=== PATIENT | female | born 1950 | race Caucasian/White ===

== ENCOUNTER 2019-09-29 08:55 | Day surgery (SDC) | payer MEDICARE, OTHER, SELFPAY ==
[2019-09-29 09:22] VITALS: BMI 27.4
[2019-09-29 09:26] VITALS: BP 176/86; PULSE 114; RESP 14; TEMP 36.8; O2SAT 96
[2019-09-29] MEDS: SODIUM CHLORIDE 0.9% 1,000 ML 200 ML IV (09:46)
--- NOTE | 2019-09-29 10:14 | PM.HP.1 ---
History of Present Illness History of Present Illness Date Patient Seen: 09/29/19 Time Patient Seen: 10:14 Chief complaint: [id number] SCREENING COLONOSCOPY Narrative: Patient presents for colorectal screening. Last colonoscopy was 10 years ago and normal.. No personal history of colon cancer. Her mother had colon cancer. On further history denies any recent gastrointestinal symptoms. No nausea, vomiting, abdominal pain, loss of appetite, unexplained weight loss, change in bowel habits, diarrhea, constipation, melena, hematochezia, or bright red blood per rectum. Patient History Medical History (Updated 09/29/19 @ 10:15 by Ronni Persaud MD) Allergic rhinitis Asthma, mild intermittent, well-controlled (02/22/16) Closed trimalleolar fracture of right ankle with delayed healing (08/09/16) Essential hypertension Family history of malignant neoplasm of colon in mother (09/02/15) Mixed hyperlipidemia (01/06/03) Surgical History (Updated 12/25/17 @ 06:24 by Conversion Provider) Status post hernia repair Family & Social History Family History (Updated 11/01/15 @ 00:00 by Conversion Provider) Father Age: 92 Dementia Hypertension Mother Colon cancer Social History: household members spouse Tobacco & Substance use: Smoking Status Never smoker alcohol intake frequency holiday/special occasion Substance Use Type does not use Meds Home Medications and Allergies Home Medications Medication Instructions Recorded Confirmed Type CA PANTOTHENATE/FOLIC ACID/VIT 1 tab PO QDAY #0 03/09/11 09/29/19 History (MULTIVITAMIN) [AZO YEAST] #0 03/09/11 History [GLUCOSAMINE/CHONDRO] #0 03/09/11 History [IBUPROFEN] #0 03/09/11 History Disabled Parking Permit dev #1 04/20/16 Rx diclofenac sodium 1 óscar TP SEE INSTRUCTIONS #100 gm 07/05/16 Rx fluconazole [Diflucan] 150 mg PO QDAY #2 tab 08/09/16 09/29/19 Rx Qvar 0.08 mg IH BID #1 mcg 11/01/16 09/29/19 Rx [CO-Q-10] 300 mg Q DAY #0 11/01/16 09/29/19 History albuterol sulfate [Proventil HFA] 1 puff INH Q4HP PRN #1 inh 11/01/16 09/29/19 Rx cholecalciferol (vitamin D3) 400 PO Q DAY #0 11/01/16 History [Vitamin D3] cyclobenzaprine 10 mg PO BID #60 mg 11/01/16 Rx estradiol [Estrace] 1 gm VAGINAL 2XWK #1 tube 11/01/16 09/29/19 Rx sulfamethoxazole-trimethoprim 1 tab PO BID #30 tab 11/01/16 Rx lisinopril 10 mg PO SEE INSTRUCTIONS 09/29/19 09/29/19 History loratadine 09/29/19 History Allergies Allergy/AdvReac Type Severity Reaction Status Date / Time hydrochlorothiazide Allergy Mild LIGHTHEADED Unverified 12/05/17 13:01 SEASONAL ALLERGIES Allergy Mild EYE Uncoded 12/05/17 13:01 IRRITATION, RUNNY NOSE SKIN ADRIANA Allergy Mild ITCHY, Uncoded 12/05/17 13:01 REDNESS AT EDGES Review of Systems Review of Systems Narrative: A 10 point review of systems is negative except as noted in the HPI Exam Vital Signs (past 8 hours): - 09/29/19 09:26 Temperature 98.3 F Pulse Rate 114 H Respiratory Rate 14 Blood Pressure 176/86 H Pulse Oximetry 96 Oxygen Delivery Method Room Air Narrative Exam Narrative: General-no acute distress, well nourished HEENT-moist mucous membranes, no scleral icterus Neck-supple, no lymphadenopathy Chest- non labored respirations, clear to auscultation bilaterally Cardiac-regular rate no peripheral edema Abdomen-soft, nontender, non distended Extremities-warm, well perfused Neurological-alert and oriented, no focal deficits Assessment & Plan Assessment and plan (1) Screening for colon cancer: Current visit: Yes Status: Acute Assessment & Plan narrative: The patient requires colorectal screening and colonoscopy is recommended. Technical details were discussed. Risks, benefits, alternatives explained. Risks including but not limited to myocardial infarction, aspiration, bleeding, pain, missed lesion, incomplete examination, need for further radiographic studies, colonic perforation, and need for major abdominal surgery were discussed. All questions were answered to their satisfaction, and they are in agreement with this plan.
--- NOTE | 2019-09-29 10:42 | PM.OP.ENDO ---
Operative Date/Time/Diagnoses Date of procedure: 09/29/19 Time of procedure: 10:42 Pre-op diagnosis: screening colonoscopy Family history of colon cancer Post-op diagnosis: same Procedure & Clinicians Study performed: Colonoscopy Same procedure as scheduled: Yes Indications: 69 year-old female last colonoscopy 10 years ago normal, 1st degree relative with colon cancer presents for routine screening Surgeon: Ronni Persaud Procedure Notes SCOAP/Timeout: Performed Procedure in detail: Patient placed in left lateral decubitus position. Time out was performed. Procedural sedation was administered with Versed and Fentanyl. A rectal exam demonstrated no external hemorrhoids no internal masses. Colonoscopy scope was placed into the rectum and advanced through the colon to the cecum. The ileocecal valve was identified. The scope was then slowly withdrawn examining colon thoroughly in all directions. The colonoscopy was notable for the following 1. Sigmoid diverticulosis 2. No masses or polyps 3. Quality of prep excellent Scope withdrawal time: 7 Sedation minutes: 20 Findings: diverticulosis Specimen(s): none sent Complications: none Impression: Diverticulosis Post-procedure Recommendations: Colonscopy in 5 years Disposition: same day surgery
[2019-09-29 10:43] VITALS: BP 143/77; PULSE 93; RESP 10; TEMP 36.4; O2SAT 99
[2019-09-29] MEDS: fentaNYL 250 MCG/5 ML INJ IV (10:44)
[2019-09-29] MEDS: MIDAZOLAM 5 MG/5 ML VIAL IV (10:45)
[2019-09-29 10:49] VITALS: BP 138/74; PULSE 94; RESP 14; TEMP 36.1; O2SAT 99
[2019-09-29 10:55] VITALS: BP 133/58; PULSE 87; RESP 12; TEMP 36.4; O2SAT 100
[2019-09-29 11:05] VITALS: BP 122/72; PULSE 84; RESP 12; TEMP 36.1; O2SAT 99
== END 2019-09-29 11:22 | disposition home or self-care (01) ==
PROVIDERS: Family Provider Nurse Practitioner; PCP Nurse Practitioner; Referring Provider Nurse Practitioner; Visit Provider Surgery
PROC: 0DJD8ZZ Inspection of Lower Intestinal Tract, Via Natural or Artificial Opening Endoscopic (ICD-10-PCS; CPT 45378; principal; 2019-09-29 10:00)
DX: Z12.11 Encounter for screening for malignant neoplasm of colon (principal); Z80.0 Family history of malignant neoplasm of digestive organs; K57.30 Diverticulosis of large intestine without perforation or abscess without bleeding
CPT/HCPCS: G0105; 99152; J2250; J3010

== ENCOUNTER → 2021-01-15 08:00 | Outpatient (CLI) | payer MEDICARE, SELFPAY ==
--- NOTE | 2021-01-15 08:03 | DI.MG.S_ITS ---
BILATERAL DIGITAL SCREENING MAMMOGRAM 3D/2D WITH CAD: 01/15/2021 CLINICAL: Routine screening. Family history of breast cancer. Comparison is made to exams dated: 09/15/2015 mammogram, 04/17/2011 mammogram, and 04/05/2004 mammogram - [facility]. The tissue of both breasts is heterogeneously dense. This may lower the sensitivity of mammography. Current study was also evaluated with a Computer Aided Detection (CAD) system. There is a possible 0.8 cm oval asymmetry with fine calcifications in the right breast middle depth central to the nipple seen on the craniocaudal view only. No other significant masses, calcifications, or other findings are seen in either breast. IMPRESSION: INCOMPLETE: NEEDS ADDITIONAL IMAGING EVALUATION The possible 0.8 cm oval asymmetry in the right breast is indeterminate. Spot magnification views as well as additional views with possible ultrasound are recommended. This exam was interpreted at Station ID: [id number]. NOTE: For mammograms, a report in lay terms will be sent to the patient. Approximately 15% of breast malignancies will not be visualized mammographically. In the management of a palpable breast mass, a negative mammogram must not discourage biopsy of a clinically suspicious lesion. Electronically Signed By: Wade rich/shannan:01/17/2021 07:26:33 letter sent: Additional Imaging Needed ACR BI-RADS Category 0: Incomplete 3340F
== END ==
PROVIDERS: Family Provider Nurse Practitioner; PCP Family Medicine; Referring Provider Nurse Practitioner Family; Visit Provider Nurse Practitioner Family
DX: Z12.31 Encounter for screening mammogram for malignant neoplasm of breast (principal); Z80.3 Family history of malignant neoplasm of breast
CPT/HCPCS: 77063; 77067

== ENCOUNTER → 2021-01-31 08:11 | Outpatient (CLI) | payer MEDICARE, SELFPAY ==
--- NOTE | 2021-01-31 | DI.MG.S_ITS ---
UNILATERAL RIGHT DIGITAL DIAGNOSTIC MAMMOGRAM 3D/2D WITH ADDITIONAL VIEWS: 01/31/2021 CLINICAL: Additional evaluation requested from prior study. Comparison is made to exams dated: 01/15/2021 mammogram, 09/15/2015 mammogram, and 04/17/2011 mammogram - [facility]. The tissue of right breast is heterogeneously dense. This may lower the sensitivity of mammography. The possible 0.8 cm asymmetry in the right breast middle depth central to the nipple seen on the craniocaudal view only is not reproduced and presumably represented superimposed breast tissue. This is not confirmed with additional views. There are diffuse fine calcifications in the right breast, none suspiciously grouped. No other significant masses or calcifications are seen in the breast. IMPRESSION: INCOMPLETE: NEEDS ADDITIONAL IMAGING EVALUATION Resolution of screening mammography abnormality with additional views. Ultrasound evaluation to confirm resolution is recommended and was performed immediately following this exam. This exam was interpreted at Station ID: [id number]. NOTE: For mammograms, a report in lay terms will be sent to the patient. Approximately 15% of breast malignancies will not be visualized mammographically. In the management of a palpable breast mass, a negative mammogram must not discourage biopsy of a clinically suspicious lesion. Electronically Signed By: Sidra ohara/:01/31/2021 09:25:47 ACR BI-RADS Category 0: Incomplete [id number]
--- NOTE | 2021-01-31 | DI.US.S_ITS ---
LIMITED ULTRASOUND OF RIGHT BREAST: 01/31/2021 CLINICAL: Patient returns today to evaluate a focal asymmetry in the right breast. Comparison is made to exams dated: 01/31/2021 mammogram, 01/15/2021 mammogram, 09/15/2015 ultrasound, 09/15/2015 mammogram, and 04/17/2011 mammogram - [facility]. Real-time ultrasound of the right breast 12 o'clock region was performed. Ramirez scale images of the real-time examination were reviewed. No significant abnormalities were seen sonographically in the right breast. Specifically, no finding to correspond to the patient's resolved screening mammographic abnormality. IMPRESSION: NEGATIVE There is no sonographic correlate to the patient's resolved screening mammography abnormality and no evidence of malignancy. Return to annual mammogram screening schedule is recommended. Findings and recommendations were conveyed to the patient at time of exam. This exam was interpreted at Station ID: [id number]. Electronically Signed By: Sidra ohara/:01/31/2021 10:17:31 letter sent: Normal Exam Ultrasound BI-RADS: 1 Negative
== END ==
PROVIDERS: Family Provider Nurse Practitioner; PCP Family Medicine; Referring Provider Nurse Practitioner Family; Visit Provider Nurse Practitioner Family
DX: R92.8 Other abnormal and inconclusive findings on diagnostic imaging of breast (principal)
CPT/HCPCS: 76642; 77065; G0279

== ENCOUNTER → 2022-05-30 10:27 | Outpatient (CLI) | payer MEDICARE, SELFPAY ==
--- NOTE | 2022-05-30 | DI.MG.S_ITS ---
BILATERAL DIGITAL SCREENING MAMMOGRAM 3D/2D WITH CAD: 05/30/2022 CLINICAL: Routine screening. Comparison is made to exams dated: 01/31/2021 mammogram, 01/15/2021 mammogram, and 09/15/2015 mammogram - [facility]. Both breasts are heterogeneously dense, which may obscure small masses (category c / 51-75% glandular tissue). Current study was also evaluated with a Computer Aided Detection (CAD) system. No significant masses, calcifications, or other findings are seen in either breast. There has been no significant interval change. IMPRESSION: NEGATIVE There is no mammographic evidence of malignancy. A 1 year screening mammogram is recommended. Based on the Tyrer Cuzick model (a risk assessment model) the patient's lifetime risk is 7.3% and her 10 year risk is 5.1%. According to the ACR, ACS, and NCCN guidelines, an annual breast MRI exam along with mammogram is recommended if the patient's lifetime risk is 20% or greater. This exam was interpreted at Station ID: [id number]. NOTE: For mammograms, a report in lay terms will be sent to the patient. Approximately 15% of breast malignancies will not be visualized mammographically. In the management of a palpable breast mass, a negative mammogram must not discourage biopsy of a clinically suspicious lesion. Electronically Signed By: Rudolph villarreal/shannan:05/30/2022 11:44:42 letter sent: Normal Exam ACR BI-RADS Category 1: Negative 3341F
== END ==
PROVIDERS: Family Provider Nurse Practitioner; PCP Family Medicine; Referring Provider Family Medicine; Visit Provider Family Medicine
DX: Z12.31 Encounter for screening mammogram for malignant neoplasm of breast (principal)
CPT/HCPCS: 77063; 77067

== ENCOUNTER → 2022-08-23 09:32 | Outpatient (CLI) | payer MEDICARE, SELFPAY | PROVIDERS: Family Provider Nurse Practitioner; PCP Family Medicine; Referring Provider Family Medicine; Visit Provider Family Medicine | DX: Z13.820 Encounter for screening for osteoporosis (principal); Z78.0 Asymptomatic menopausal state | CPT/HCPCS: 77080 ==

== ENCOUNTER → 2023-07-25 11:21 | Outpatient (CLI) | payer MEDICARE, SELFPAY ==
--- NOTE | 2023-07-25 | DI.MG.S_ITS ---
BILATERAL DIGITAL SCREENING MAMMOGRAM 3D/2D WITH CAD: 07/25/2023 CLINICAL: Routine screening. Family history of breast cancer. Comparison is made to exams dated: 05/30/2022 mammogram, 01/15/2021 mammogram, and 09/15/2015 mammogram - [facility]. Both breasts are heterogeneously dense, which may obscure small masses (category c / 51-75% glandular tissue). Current study was also evaluated with a Computer Aided Detection (CAD) system. No significant masses, calcifications, or other findings are seen in either breast. There has been no significant interval change. IMPRESSION: NEGATIVE There is no mammographic evidence of malignancy. A 1 year screening mammogram is recommended. Based on the Tyrer Cuzick model (a risk assessment model) the patient's lifetime risk is 6.9% and her 10 year risk is 5.2%. According to the ACR, ACS, and NCCN guidelines, an annual breast MRI exam along with mammogram is recommended if the patient's lifetime risk is 20% or greater. This exam was interpreted at Station ID: [id number]. NOTE: For mammograms, a report in lay terms will be sent to the patient. Approximately 15% of breast malignancies will not be visualized mammographically. In the management of a palpable breast mass, a negative mammogram must not discourage biopsy of a clinically suspicious lesion. Electronically Signed By: Rudolph villarreal/shannan:07/25/2023 13:34:39 letter sent: Normal Exam ACR BI-RADS Category 1: Negative [id number]
--- NOTE | 2023-07-25 | DI.US.S_ITS ---
PROCEDURE: US ABDOMEN COMPLETE INDICATIONS: CHRONIC ABD PAIN TECHNIQUE: Real-time scanning was performed of the abdominal and retroperitoneal organs, with image documentation. COMPARISON: None. FINDINGS: Liver: Normal size liver. Mildly coarse and slightly hyperechoic hepatic echotexture. No discrete mass. Gallbladder: The gallbladder is normal without stones, sludge, wall thickening, or pericholecystic fluid. Biliary ducts: Intrahepatic bile ducts are non-dilated. Extrahepatic bile duct caliber measures 6 mm. Normal is 6-7 mm or less in diameter, or 10 mm or less post-cholecystectomy. Pancreas: Decreased visualization of the proximal and distal pancreas due to overlying bowel gas. The visualized portion of the neck and body appear normal. Spleen: Spleen is normal in size and homogeneous in echotexture. Kidneys: The right kidney is dysmorphic and found in the right lower quadrant. The cortical thickness appears normal there is no significant hydronephrosis seen. The left kidney is normal in position and size measuring 13.1 cm in length. No hydronephrosis. Aorta: Visualized aorta is normal in caliber at less than 3 cm. Iliacs: Proximal common iliac arteries are normal in caliber at less than 2.5 cm. IVC: Intrahepatic inferior vena cava is patent. Miscellaneous: Right upper quadrant area of pain was scanned at rest and during Valsalva maneuver. No abdominal wall hernia was seen. No free fluid. IMPRESSION: 1. Mildly coarse hepatic echotexture may indicate intrinsic liver disease. Correlation with lab values is recommended. 2. Normal gallbladder. 3. No abdominal wall hernia in the area of pain. For further evaluation, contrast-enhanced CT or MRI could be considered. Dictated by: Sidra Montes M.D. on 07/25/2023 at 17:39 Approved by: Sidra Montes M.D. on 07/25/2023 at 17:44
== END ==
PROVIDERS: Family Provider Nurse Practitioner; PCP Family Medicine; Referring Provider Family Medicine; Visit Provider Family Medicine
DX: Z12.31 Encounter for screening mammogram for malignant neoplasm of breast (principal); R10.9 Unspecified abdominal pain; G89.29 Other chronic pain; R07.81 Pleurodynia; Z87.19 Personal history of other diseases of the digestive system; Z80.3 Family history of malignant neoplasm of breast
CPT/HCPCS: 76700; 77063; 77067

== ENCOUNTER → 2023-09-19 10:10 | Outpatient (CLI) | payer MEDICARE, SELFPAY ==
--- NOTE | 2023-09-19 10:12 | DI.CT.S_ITS ---
PROCEDURE: CT ABDOMEN PELVIS W CON INDICATIONS: ABNORMAL ULTRASOUND OF ABDOMEN TECHNIQUE: After the administration of intravenous contrast, axial sections acquired from the lung bases to the pubic symphysis. Coronal and sagittal reformats were performed. For radiation dose reduction, the following was used: automated exposure control, adjustment of mA and/or kV according to patient size. COMPARISON: [facility], US, US ABDOMEN COMPLETE, 07/25/2023, 12:51. FINDINGS: Image quality: Diagnostic. Lower Chest: 3-4 mm solid nodule, right lower lobe (series 5, image 14). Oral contrast within the distal esophagus, probably reflux. Moderate LAD calcifications. ABDOMEN: Liver: No solid mass. Gallbladder: No radiopaque gallstones or wall thickening. Biliary ducts: No biliary dilation. Pancreas: No ductal dilation. Interposed fat within the tail of the pancreas. Spleen: Size is within normal limits. Adrenal Glands: No adrenal nodules. Kidneys and Ureters: Right Kidney is not present. No hydronephrosis. No solid mass. No complex renal cystic lesion which requires follow up. Stomach and Bowel: Normal colonic caliber, without significant wall thickening. Peritoneum: No abnormal intraperitoneal fluid. No free air. Ventral Wall: Tiny umbilical hernia containing fat. Abdominal Nodes: No retroperitoneal or mesenteric adenopathy by size criteria. Vessels: Aorta and inferior vena cava are normal in size. PELVIS: Pelvic Organs: Unremarkable. Bladder: Unremarkable. Pelvic Nodes: No enlarged lymph nodes. Miscellaneous: No inguinal hernias are seen. Bones: No aggressive osseous abnormality. Degenerative disc disease, most prominent at L4-5. IMPRESSION: Tiny umbilical hernia containing fat. 3-4 mm solid nodule in the right lower lobe. Consider 12 month follow-up if at high risk for developing lung cancer, per Fleischner Society guidelines. Suspected gastroesophageal reflux. Dictated by: León Cullen M.D. on 09/19/2023 at 12:45 Approved by: León Cullen M.D. on 09/19/2023 at 12:52
[2023-09-19 10:53] LABS: Estimated Glomerular Filt Rate > 60 mL/min (>60)
== END ==
LOC: CT 10:11
PROVIDERS: Radiology Diagnostic Radiology; Family Provider Nurse Practitioner; PCP Family Medicine; Referring Provider Family Medicine; Visit Provider Family Medicine
DX: R93.5 Abnormal findings on diagnostic imaging of other abdominal regions, including retroperitoneum (principal); R91.1 Solitary pulmonary nodule
CPT/HCPCS: 36415; 74177; 82565; Q9967

== ENCOUNTER → 2023-11-05 07:47 | Outpatient (CLI) | payer MEDICARE, SELFPAY ==
[2023-11-05 08:17] LABS: Add Manual Diff / Slide Review NO; Basophils Absolute Auto 0 /uL (0-100); Basophils Percent Auto 0.6 % (0-2); Eosinophils Absolute Auto 100 /uL (0-450); Eosinophils Percent Auto 2.4 % (2-4); Hematocrit 41.9 % (36-46); Hemoglobin 14.2 g/dL (12.0-16.0); Lymphocytes Absolute Auto 1600 /uL (1100-4500); Lymphocytes Percent Auto 30.8 % (25-40); Mean Corpuscular HGB Conc 33.9 % (30-36); Mean Corpuscular Hemoglobin 31.4 PG (26-34); Mean Corpuscular Volume 92.7 fL (80-100); Monocytes Absolute Auto 400 /uL (0-900); Monocytes Percent Auto 8.1 % (3-14); Neutrophils Absolute Auto 3000 /uL (1500-7000); Neutrophils Percent Auto 58.1 % (50-75); Platelet Count 266 X10^3/uL (150-400); Red Blood Cell Count 4.52 X10^6/uL (4.0-5.2); Red Cell Distribution Width 12.5 % (11.6-14.8); White Blood Cell Count 5.2 X10^3/uL (4.5-11.0)
[2023-11-05 08:48] LABS: Alanine Aminotransferase 26 IU/L (<35); Albumin 4.1 g/dL (3.5-5.0); Albumin Globulin Ratio 1.4 (1.0-2.8); Alkaline Phosphatase 81 U/L (38-126); Aspartate Aminotransferase 31 IU/L (14-36); BUN Creatinine Ratio 15.9 (6-22); Bilirubin Total 0.9 mg/dL (0.2-1.3); Blood Urea Nitrogen 13 mg/dL (7-17); Calcium 9.8 mg/dL (8.4-10.2); Carbon Dioxide 28 mmol/L (22-32); Chloride 107 mmol/L (98-107); Cholesterol 146 mg/dL (140-199); Estimated Glomerular Filt Rate > 60 mL/min (>60); Glucose 93 mg/dL (80-110); HDL Cholesterol 72 mg/dL (40-60); HEMOLYSIS < 15 (0-50); LDL Cholesterol Calculated 60 mg/dL (<100); Potassium 3.9 mmol/L (3.4-5.1); Sodium 141 mmol/L (137-145); Total Protein 7.1 g/dL (6.3-8.2); Triglycerides 70 mg/dL (35-150)
[2023-11-05 09:18] LABS: TSH w/ Reflex to FT4 1.02 uIU/mL (0.47-4.68)
[2023-11-07 08:10] LABS: Interpretation Negative (Negative)
== END ==
PROVIDERS: Family Provider Nurse Practitioner; PCP Nurse Practitioner Family; Referring Provider Nurse Practitioner Family; Visit Provider Nurse Practitioner Family
DX: I10 Essential (primary) hypertension (principal); K27.9 Peptic ulcer, site unspecified, unspecified as acute or chronic, without hemorrhage or perforation; E78.5 Hyperlipidemia, unspecified
CPT/HCPCS: 36415; 80053; 80061; 83013; 84443; 85025

== ENCOUNTER → 2024-01-25 08:40 | Outpatient (CLI) | payer MEDICARE, SELFPAY ==
[2024-01-25 09:46] LABS: Alanine Aminotransferase 56 IU/L (<35); Albumin Globulin Ratio 1.5 (1.0-2.8); Alkaline Phosphatase 100 U/L (38-126); Aspartate Aminotransferase 49 IU/L (14-36); BUN Creatinine Ratio 25.9 (6-22); Bilirubin Total 0.8 mg/dL (0.2-1.3); Blood Urea Nitrogen 22 mg/dL (7-17); Calcium 9.9 mg/dL (8.4-10.2); Carbon Dioxide 30 mmol/L (22-32); Chloride 107 mmol/L (98-107); Estimated Glomerular Filt Rate > 60 mL/min (>60); Globulin 2.6 g/dL (1.7-4.1); Glucose 109 mg/dL (80-110); HEMOLYSIS < 15 (0-50); Potassium 4.4 mmol/L (3.4-5.1); Sodium 139 mmol/L (137-145); Total Protein 6.6 g/dL (6.3-8.2)
[2024-01-25 09:57] LABS: Creatinine Urine Random 34.36 mg/dL
[2024-01-25 10:01] LABS: Microalbumin Urine Random < 0.6 mg/dL (0-1.6)
== END ==
PROVIDERS: Family Provider Nurse Practitioner; PCP Nurse Practitioner Family; Referring Provider Nurse Practitioner Family; Visit Provider Nurse Practitioner Family
DX: I10 Essential (primary) hypertension (principal); E78.5 Hyperlipidemia, unspecified
CPT/HCPCS: 36415; 80053; 82043; 82570

== ENCOUNTER 2024-04-01 15:03 | Emergency (ER) | payer MEDICARE, SELFPAY ==
[2024-04-01 15:08] VITALS: BP 247/112; PULSE 78; RESP 18; TEMP 36.7; O2SAT 99; BMI 28.3
--- NOTE | 2024-04-01 15:19 | EKG_ITS ---
[address] [id number] [place] [address] Test Date: 2024-04-01 Pat Name: Mikayla Dillard Department: [facility] Room: Gender: Female Service Clerk: MICHAEL : 1950 Requested By: Order Number: [id number] Reading MD: Alfa Bobby MD Measurements Intervals Crum Rate: 72 P: 50 WA: 140 QRS: 22 QRSD: 130 T: 3 QT: 432 QTc: 473 Interpretive Statements Normal sinus rhythm Right bundle branch block NO PRIOR TRACING Electronically Signed On 04-01-2024 16:51:08 PDT by Alfa Bobby MD
--- NOTE | 2024-04-01 15:19 | DI.RAD.S_ITS ---
PROCEDURE: XR CHEST 1V INDICATIONS: htn TECHNIQUE: One view of the chest was acquired. COMPARISON: None. FINDINGS: Surgical changes and devices: None. Lungs and pleura: Lungs are clear. No pleural effusions or pneumothorax. Mediastinum: Mediastinal contours appear normal. Heart size is normal. Bones and chest wall: No suspicious bony lesions. Overlying soft tissues appear unremarkable. IMPRESSION: No acute cardiopulmonary abnormality is seen. Dictated by: Ingris Mcdaniels M.D. on 04/01/2024 at 15:57 Approved by: Ingris Mcdaniels M.D. on 04/01/2024 at 15:58
[2024-04-01 15:33] LABS: Add Manual Diff / Slide Review NO; Basophils Absolute Auto 100 /uL (0-100); Basophils Percent Auto 1.2 % (0-2); Eosinophils Absolute Auto 100 /uL (0-450); Eosinophils Percent Auto 2.2 % (2-4); Hemoglobin 14.5 g/dL (12.0-16.0); Lymphocytes Absolute Auto 1600 /uL (1100-4500); Lymphocytes Percent Auto 27.2 % (25-40); Mean Corpuscular HGB Conc 33.7 % (30-36); Mean Corpuscular Hemoglobin 31.9 PG (26-34); Mean Corpuscular Volume 94.6 fL (80-100); Monocytes Absolute Auto 400 /uL (0-900); Monocytes Percent Auto 7.2 % (3-14); Neutrophils Absolute Auto 3700 /uL (1500-7000); Neutrophils Percent Auto 62.2 % (50-75); Platelet Count 254 X10^3/uL (150-400); Red Blood Cell Count 4.55 X10^6/uL (4.0-5.2); Red Cell Distribution Width 12.9 % (11.6-14.8)
--- NOTE | 2024-04-01 15:33 | PC.NURSE ---
Pt sent by optho office because pt was experiencing HTN prior to cateract procedure. Pt states that she feels fine and did not even realize her bp was so high. Pt has hx of HTN for which she takes losartan. A&Ox4. Denies cp, sob.
[2024-04-01 15:44] LABS: Alanine Aminotransferase 32 IU/L (<35); Albumin 4.3 g/dL (3.5-5.0); Albumin Globulin Ratio 1.3 (1.0-2.8); Alkaline Phosphatase 107 U/L (38-126); Aspartate Aminotransferase 37 IU/L (14-36); BUN Creatinine Ratio 23.4 (6-22); Bilirubin Total 0.7 mg/dL (0.2-1.3); Blood Urea Nitrogen 18 mg/dL (7-17); Calcium 9.7 mg/dL (8.4-10.2); Carbon Dioxide 25 mmol/L (22-32); Chloride 108 mmol/L (98-107); Creatine Kinase 51 U/L (30-135); Estimated Glomerular Filt Rate > 60 mL/min (>60); Globulin 3.2 g/dL (1.7-4.1); Glucose 102 mg/dL (80-110); HEMOLYSIS 20 (0-50); Lipase 213 U/L (23-300); Potassium 4.1 mmol/L (3.4-5.1); Sodium 139 mmol/L (137-145); Total Protein 7.5 g/dL (6.3-8.2)
[2024-04-01 15:51] VITALS: PULSE 80; RESP 12; O2SAT 95
[2024-04-01 15:52] VITALS: BP 230/107; PULSE 77; O2SAT 97
[2024-04-01 15:56] LABS: Troponin I < 0.012 ng/mL (0.01-0.034)
[2024-04-01 16:00] VITALS: BP 209/100; PULSE 74; RESP 15; O2SAT 98
--- NOTE | 2024-04-01 16:21 | ED.GENADULT ---
HPI - General Adult General Chief complaint: Hypertension Stated complaint: sent by clinic,very high blood pressure Time Seen by Provider: 04/01/24 15:18 Source: patient, family, RN notes reviewed and old records reviewed Mode of arrival: Ambulatory Limitations: no limitations History of Present Illness HPI narrative: 74-year-old female was having cataract surgery today had her right eye dilated and was noted to have elevated blood pressure in the 200/100 systolic range. Surgery was canceled and patient was told to go the emergency department. She states no symptoms. She states she is often elevated when she goes to the physician has any procedures done. She states she checks her blood pressure fairly regularly at home she runs typically 120s over 60s on average occasionally in the 140s but states she is fairly normal on her blood pressure with a regular checks. She does have a history of hypertension she is on losartan, states she was changed from lisinopril sometime ago secondary to cough she also takes rosuvastatin. She denies any symptoms, no headaches, no chest pain or shortness of breath, no nausea or vomiting, no abdominal back or flank pain, no urinary symptoms no GI symptoms. No swelling in extremities no numbness tingling or weakness of her extremities. Patient states she is done any anticoagulation. No prior surgeries. She is seasonal allergies and allergic to hydrochlorothiazide. No tobacco, occasional alcohol, no recreational drugs. Related Data Home Medications Medication Instructions Recorded Confirmed [AZO YEAST] ##0 03/09/11 01/09/24 Lion's kd PO 11/02/23 01/09/24 glucos sul [id number] PO 11/02/23 01/09/24 [Glucosamine Chondroitin] rosuvastatin 10 mg tablet 10 mg PO DAILY Cholesterol 11/02/23 01/09/24 Previous Rx's Medication Instructions Recorded albuterol sulfate 90 mcg/actuation 1 puff INH Q4HP PRN #1 inh 11/01/16 aerosol inhaler (Proventil HFA) beclomethasone dipropionate 80 0.08 mg IH BID #1 mcg 11/01/16 mcg/actuation aerosol inhaler (Qvar) cyclobenzaprine 10 mg tablet 10 mg PO BID #60 mg 11/01/16 estradiol 0.01% (0.1 mg/gram) 1 g vaginal 3XW #42.5 grams 03/19/24 vaginal cream losartan 50 mg tablet 100 mg (2 x 50 mg) PO DAILY #180 03/25/24 tabs Allergies Allergy/AdvReac Type Severity Reaction Status Date / Time hydrochlorothiazide Allergy Mild LIGHTHEADED Unverified 01/09/24 14:44 SKIN ADRIANA Allergy Mild ITCHY, Uncoded 01/09/24 14:44 REDNESS AT EDGES Review of Systems Review of Systems ROS Unobtainable: All systems reviewed & are unremarkable except as noted in HPI and below Patient History Medical History Abdominal hernia Hyperlipidemia Congenital abnormality of kidney Gastroesophageal reflux disease Hypertension UTI (urinary tract infection), uncomplicated (03/09/03) Tear of medial meniscus of knee, current (02/22/05) Pap smear for cervical cancer screening (03/15/04) Neck pain (09/29/02) Closed trimalleolar fracture of right ankle with delayed healing (08/09/16) Family history of malignant neoplasm of colon in mother (09/02/15) Asthma, mild intermittent, well-controlled (02/22/16) Allergic rhinitis Essential hypertension Mixed hyperlipidemia (01/06/03) Surgical History Status post hernia repair Family History Father Age: 97 Dementia Hypertension Mother Colon cancer Social History household members: spouse Smoking Status: Never smoker alcohol intake: current (1 drink per week ) substance use type: does not use Smoking Status: Never smoker alcohol intake frequency: holidays/special occasions only Substance Use Type: does not use Exam Narrative Exam Narrative: GEN: well nourished, well appearing female, alert and oriented x 3, patient appears to be in no acute distress. HEENT: Atraumatic, pupils are unequal right pupil is enlarged compared to left. Patient was dilated prior to her ED visit. They are round reactive to light, extraocular movements are intact, nares are clear, TMs are clear with no fluid, there is no conjunctival pallor. Throat is clear without any exudates, erythema, tonsillar enlargement or uvular deviation HEART: Regular rate and rhythm without murmur, clicks, rubs. No carotid bruits, pulses are equal in upper and lower extremities LUNGS:Lungs clear to auscultation, no wheezes, rales, crackles, chest moves symmetrically ABD:bowel sounds normal, soft, non-tender, no guarding, rebound, rigidity, no masses noted, no hepatosplenomegaly :No CVA tenderness MSCL: Non-tender, no muscle atrophy, muscles strength 5/5 upper and lower extremities, full range of motion, normal gait NEURO:CN 2-12 intact, sensation normal. SKIN: No rash, erythema or other skin changes. Initial Vital Signs Initial Vital Signs: Vital Signs Temperature 98.1 F 04/01/24 15:08 Pulse Rate 78 04/01/24 15:08 Respiratory Rate 18 04/01/24 15:08 Blood Pressure 247/112 H 04/01/24 15:08 Pulse Oximetry 99 04/01/24 15:08 Oxygen Delivery Method Room Air 04/01/24 15:08 Course Orders Ordered: ED Orders 04/01/24 15:19 XR chest 1V Stat EKG-12 Lead Stat 04/01/24 15:21 Complete Blood Count AUTO DIFF Stat Comprehensive Metabolic Panel Stat Lipase Stat Troponin & CK Cardiac Panel Stat Vital Signs Vital signs: Vital Signs - 8 hr 04/01/24 15:08 04/01/24 15:51 04/01/24 15:52 Temperature 98.1 F Pulse Rate 78 80 77 Respiratory Rate 18 12 Blood Pressure 247/112 H Pulse Oximetry 99 95 97 Oxygen Delivery Method Room Air 04/01/24 15:52 04/01/24 16:00 04/01/24 16:00 Temperature Pulse Rate 74 Respiratory Rate 15 Blood Pressure 230/107 H 209/100 H Pulse Oximetry 98 Oxygen Delivery Method Medical Decision Making Lab Data 04/01/24 15:21 04/01/24 15:21 Labs: Lab Results 04/01/24 Range/Units 15:21 WBC 6.0 (4.5-11.0) X10^3/uL RBC 4.55 (4.0-5.2) X10^6/uL Hgb 14.5 (12.0-16.0) g/dL Hct 43.0 (36-46) % MCV 94.6 (80-100) fL MCH 31.9 (26-34) PG MCHC 33.7 (30-36) % RDW 12.9 (11.6-14.8) % Plt Count 254 (150-400) X10^3/uL Neut % (Auto) 62.2 (50-75) % Lymph % (Auto) 27.2 (25-40) % Graves % (Auto) 7.2 (3-14) % Eos % (Auto) 2.2 (2-4) % Baso % (Auto) 1.2 (0-2) % Neut # (Auto) 3700 (5011-2127) /uL Lymph # (Auto) 1600 (7625-4974) /uL Graves # (Auto) 400 (0-900) /uL Eos # (Auto) 100 (0-450) /uL Baso # (Auto) 100 (0-100) /uL Sodium 139 (137-145) mmol/L Potassium 4.1 (3.4-5.1) mmol/L Chloride 108 H (98-107) mmol/L Carbon Dioxide 25 (22-32) mmol/L BUN 18 H (7-17) mg/dL Creatinine 0.77 (0.52-1.04) mg/dL Estimated GFR > 60 (>60) mL/min BUN/Creatinine Ratio 23.4 H (6-22) Glucose 102 (80-110) mg/dL Calcium 9.7 (8.4-10.2) mg/dL Total Bilirubin 0.7 (0.2-1.3) mg/dL AST 37 H (14-36) IU/L ALT 32 (<35) IU/L Alkaline Phosphatase 107 (38-126) U/L Total Creatine Kinase 51 (30-135) U/L Troponin I < 0.012 (0.01-0.034) ng/mL Total Protein 7.5 (6.3-8.2) g/dL Albumin 4.3 (3.5-5.0) g/dL Globulin 3.2 (1.7-4.1) g/dL Albumin/Globulin Ratio 1.3 (1.0-2.8) Lipase 213 (23-300) U/L Imaging Data Chest x-ray: Radiologist's Impression: Mikayla Dillard??She/Her/Hers??74??F??1950 ? Allergy/Adv: hydrochlorothiazide, [SKIN ADRIANA] (More??) Close Chest X-Ray (Signed) Ingris Mcdaniels - 04/01/24 Abdomen/Pelvis CT (Signed) León Cullen - 09/19/23 Mammogram Screening (Signed) Rudolph Knutson - 07/25/23 Abdomen Ultrasound (Signed) SimonSidra - 07/25/23 DEXA Result 08/23/22 Bone Densitometry 08/23/22 Mammogram Screening (Signed) Rudolph Knutson - 05/30/22 Mammogram, Additional Views (Signed) Sidra Montes - 01/31/21 Breast Ultrasound (Signed) Sidra Montes - 01/31/21 Mammogram Screening (Signed) Wade Benson - 01/15/21 Telemetry Strips 09/29/19 Launch?[place] [address] XRay Report Signed Patient: Mikayla Dillard MR#: [id number] : 1950 Acct:[id number] Age/Sex: 74 / F Date of Service: 04/01/24 Loc: ED Accession Number: [id number] Procedure: XR chest 1V Ordering Provider: Kaylene Griffith D.O. PROCEDURE: XR CHEST 1V INDICATIONS: htn TECHNIQUE: One view of the chest was acquired. COMPARISON: None. FINDINGS: Surgical changes and devices: None. Lungs and pleura: Lungs are clear. No pleural effusions or pneumothorax. Mediastinum: Mediastinal contours appear normal. Heart size is normal. Bones and chest wall: No suspicious bony lesions. Overlying soft tissues appear unremarkable. IMPRESSION: No acute cardiopulmonary abnormality is seen. Dictated by: Ingris Mcdaniels M.D. on 04/01/2024 at 15:57 Approved by: Ingris Mcdaniels M.D. on 04/01/2024 at 15:58 ECG Data Attestation: I personally reviewed and interpreted this ECG as follows: Prior ECG tracings: not available for review Interpretation: Sinus rhythm, right bundle-branch block rate of 72 RI 140 QRS of 130 QTC of 473. No priors for comparison. No priors for comparison. MDM Narrative Medical decision making narrative: 74-year-old female with history of hypertension on a daily blood pressure medication patient has been high and prior visits with the primary care physician. This is reviewed in the chart. Patient had a procedure today was not completed but her eye was dilated she was supposed to have cataract surgery. She states she is typically high for office visits or interventions. Patient states she has had no symptoms. She does home blood pressure cuff which runs 120s to 140s at her maximum. She takes this fairly regularly. No obvious end-organ disease today. Pupils are unequal but patient had them dilated. She has no headache and after discussion we will refrain from CT of the head. Patient has a weight of monitor blood pressure at home encouraged to continue she has had her medications today. If they are elevated to reach out to primary care to adjust her medications if there normalize to talk with them about ways to help her blood pressure be improved when she goes to have her procedure repeated. White count of 6, hemoglobin of 14.5 platelets of 254, glucose is 102 creatinine 0.7 BUN 18 with a sodium of 139 potassium of 4.1 chloride of 108 CO2 of 25, troponins less than 0.012 Negative chest x-ray. EKG shows sinus rhythm rate of 72 RI 140 QRS of 130 QTC 473. Discharge Plan Departure Patient Disposition: Home Clinical Impression: Hypertension Activity Restrictions/Additional Instructions: Follow up with your physician for recheck, if your blood pressures continued to be appropriate in the 120-140 range you do not require any intervention. If they are running than 140s consistently for the top or systolic number talk with your physician about adjusting your medication. Maybe worthwhile to talk with your physician about taking something prior to your procedure if you 10 to be elevated with office visits or procedures. Please return for any headaches, new chest pain or shortness of breath, lightheadedness or passing out, nausea or vomiting, diaphoresis, new swelling of extremities or other new or concerning changes. Prescriptions: No Action [AZO YEAST] Qty: 0 cyclobenzaprine 10 MG tablet 10 mg PO BID Qty: 60 1RF Qvar 80 MCG/PUFF aerosol 0.08 mg IH BID Qty: 1 3RF albuterol sulfate [Proventil HFA] 90 MCG/PUFF HFA aerosol inhaler 1 puff INH Q4HP PRNQty: 1 2RF estradiol 0.01 % (0.1 mg/gram) cream 1 g vaginal 3XW Qty: 42.5 3RF losartan 50 mg tablet 100 mg PO DAILY Qty: 180 3RF Rx Instructions: Take 2 tabs daily unless symptomatic of low BP , then take 1. rosuvastatin 10 mg tablet 10 mg PO DAILY Josselyn yi PO glucos sul [id number] [Glucosamine Chondroitin] PO Referrals: Heena Jaeger, SERVICE LEARNING COORDINATOR-BC [Primary Care Provider] - Stand Alone Forms: Patient Portal/API
[2024-04-01 16:30] VITALS: BP 226/107; PULSE 76; RESP 20; O2SAT 98
[2024-04-01 16:39] VITALS: BP 207/98; PULSE 70; RESP 15
== END 2024-04-01 16:48 | disposition home or self-care (01) ==
PROVIDERS: Emergency Provider Emergency Medicine; Family Provider Nurse Practitioner; PCP Nurse Practitioner Family
DX: I10 Essential (primary) hypertension (principal); I45.10 Unspecified right bundle-branch block
CPT/HCPCS: 36415; 71045; 80053; 82550; 83690; 84484; 85025; 93005; 93010; 99283; 99284

== ENCOUNTER → 2024-05-07 15:05 | Outpatient (CLI) | payer MEDICARE, SELFPAY ==
[2024-05-07 16:51] LABS: BUN Creatinine Ratio 26.2 (6-22); Blood Urea Nitrogen 22 mg/dL (7-17); Calcium 10.1 mg/dL (8.4-10.2); Carbon Dioxide 30 mmol/L (22-32); Chloride 102 mmol/L (98-107); Estimated Glomerular Filt Rate > 60 mL/min (>60); Glucose 92 mg/dL (80-110); HEMOLYSIS < 15 (0-50); Potassium 3.8 mmol/L (3.4-5.1); Sodium 137 mmol/L (137-145)
== END ==
LOC: LAB 15:06
PROVIDERS: Family Provider Nurse Practitioner; PCP Nurse Practitioner Family; Referring Provider Nurse Practitioner Family; Visit Provider Nurse Practitioner Family
DX: I10 Essential (primary) hypertension (principal)
CPT/HCPCS: 36415; 80048

== ENCOUNTER → 2024-05-27 13:28 | Outpatient (CLI) | payer MEDICARE, SELFPAY ==
--- NOTE | 2024-05-27 13:29 | DI.RAD.S_ITS ---
PROCEDURE: XR KNEE RT 3V INDICATIONS: Right knee pain and swelling TECHNIQUE: 3 views of the knee were acquired. COMPARISON: None. FINDINGS: Several calcifications are noted posteriorly on the lateral image at the joint line measuring between 2 mm, and 6 mm diameter commonly related to fabella, joint capsule calcifications although intra-articular loose bodies, chondrocalcinosis or other heterotopic calcification could give this appearance. Mild to moderate degenerative changes of the right knee are noted with joint space narrowing and marginal osteophytes in the medial greater than patellofemoral greater than lateral compartments. Suspected mild knee joint effusion Mild osteopenia. No radiographic evidence of fracture, dislocation or high attenuation soft tissue foreign body. Artifacts from overlying clothing and other extrinsic artifacts partially limit radiographic detail. IMPRESSION: Several calcifications are noted posteriorly as discussed above. Mild to moderate degenerative changes of the right knee as discussed above. Suspected mild knee joint effusion. Mild osteopenia. If symptoms persist or worsen, or there is high clinical suspicion of right knee abnormality, MRI could be performed. Dictated by: Lacho Rodríguez M.D. on 05/27/2024 at 13:58 Approved by: Lacho Rodríguez M.D. on 05/27/2024 at 14:30
== END ==
PROVIDERS: Family Provider Nurse Practitioner; PCP Nurse Practitioner Family; Referring Provider Physician Assistant Surgical; Visit Provider Physician Assistant Surgical
DX: M25.861 Other specified joint disorders, right knee (principal); M85.88 Other specified disorders of bone density and structure, other site; M25.561 Pain in right knee
CPT/HCPCS: 73562

== ENCOUNTER → 2024-05-30 08:33 | Outpatient (CLI) | payer MEDICARE, SELFPAY ==
[2024-05-30 10:06] LABS: Add Manual Diff / Slide Review NO; Basophils Absolute Auto 0 /uL (0-100); Basophils Percent Auto 0.5 % (0-2); Eosinophils Absolute Auto 100 /uL (0-450); Eosinophils Percent Auto 1.7 % (2-4); Hematocrit 40.5 % (36-46); Hemoglobin 13.8 g/dL (12.0-16.0); Lymphocytes Absolute Auto 1600 /uL (1100-4500); Mean Corpuscular HGB Conc 34.2 % (30-36); Mean Corpuscular Hemoglobin 31.8 PG (26-34); Mean Corpuscular Volume 92.9 fL (80-100); Monocytes Absolute Auto 500 /uL (0-900); Monocytes Percent Auto 6.8 % (3-14); Neutrophils Absolute Auto 4600 /uL (1500-7000); Platelet Count 274 X10^3/uL (150-400); Red Blood Cell Count 4.35 X10^6/uL (4.0-5.2); Red Cell Distribution Width 12.5 % (11.6-14.8); White Blood Cell Count 6.8 X10^3/uL (4.5-11.0)
[2024-05-30 10:37] LABS: Erythrocyte Sedimentation Rate 14 MM/HR (0-20)
[2024-05-30 14:13] LABS: Crystals Body Fluid - IN-HOUSE NONE Present
== END ==
PROVIDERS: Family Provider Nurse Practitioner; PCP Nurse Practitioner Family; Referring Provider Nurse Practitioner Family; Visit Provider Nurse Practitioner Family
DX: I10 Essential (primary) hypertension (principal); M25.561 Pain in right knee; Q63.9 Congenital malformation of kidney, unspecified; M25.461 Effusion, right knee
CPT/HCPCS: 36415; 84550; 85025; 85651; 89060

== ENCOUNTER → 2024-06-27 10:51 | Outpatient (CLI) | payer MEDICARE, SELFPAY ==
--- NOTE | 2024-06-27 10:53 | DI.MRI.S_ITS ---
PROCEDURE: MR KNEE RT WO CON INDICATIONS: ongoing R knee pain TECHNIQUE: Noncontrast sagittal PD fast spin echo and T2 fast spin echo with fat saturation, sagittal 3-D FLASH with fat saturation; coronal T1 spin echo and PD fast spin echo with fat saturation, and axial PD fast spin echo with fat saturation through the knee. COMPARISON: [facility], CR, XR KNEE RT 3V, 05/27/2024, 12:45. FINDINGS: Image quality: Excellent. Anterior cruciate ligament: Intact. Posterior cruciate ligament: Intact. Medial collateral ligament: Mild thickening of the proximal medial collateral ligament without surrounding edema is consistent with remote prior low-grade sprain. Lateral collateral ligament: Remote prior low-grade sprain of the proximal lateral collateral ligament. Medial meniscus: Horizontal oblique tearing at the posterior horn and body of the medial meniscus extending to the middle third of the femoral articular surface. Lateral meniscus: Horizontal oblique tear of the body of the lateral meniscus extending to the femoral articular surface. Complex degenerated macerated tear at the anterior horn. Medial and lateral tendons: The semimembranosus tendon insertions appear intact. Visualized portions of the pes anserinus tendons appear normal. The popliteus tendon is intact. Iliotibial band appears normal. Anterior structures: The quadriceps and patellar tendons appear intact. No patellar subluxation. No femoral trochlear dysplasia or ventral trochlear prominence. No edema in the infrapatellar fat pad. Bones and cartilage: No bone marrow contusions or fractures. Medial femorotibial cartilage: Mild partial-thickness cartilage irregularity in the weight-bearing portion of the medial femorotibial compartment. Small marginal osteophytes. Lateral femorotibial cartilage: High-grade versus full-thickness cartilage loss in the central posterior weight-bearing portion of the lateral tibial plateau and lateral femoral condyle with mild subchondral edema and small marginal osteophytes. Patellofemoral cartilage: High-grade partial-thickness cartilage irregularity most notably at the medial patellar facet and trochlear groove. Small marginal osteophytes. Soft tissues: Moderate joint effusion is present. Trace medial popliteal cyst. The visualized musculature is normal in bulk. IMPRESSION: 1. Complex macerated tear of the anterior horn of the lateral meniscus extending to the meniscal body. 2. Horizontal oblique tearing of the body and posterior horn of the medial meniscus extending to the middle third of the femoral articular surface. 3. Remote prior low-grade sprains of the medial and lateral collateral ligaments. 4. 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 Grade 2 chondromalacia is seen in the patellofemoral compartment. There is grade 2 chondromalacia in the medial femorotibial compartment. 5. No acute trabecular bone injury. Cruciate and collateral ligaments are intact. 6. Moderate joint effusion. Approved by: Buster Franklin M.D. on 06/27/2024 at 12:48
== END ==
PROVIDERS: Family Provider Nurse Practitioner; PCP Nurse Practitioner Family; Referring Provider Nurse Practitioner Family; Visit Provider Nurse Practitioner Family
DX: S83.271A Complex tear of lateral meniscus, current injury, right knee, initial encounter (principal); S83.241A Other tear of medial meniscus, current injury, right knee, initial encounter; S83.411A Sprain of medial collateral ligament of right knee, initial encounter; S83.421A Sprain of lateral collateral ligament of right knee, initial encounter; M22.41 Chondromalacia patellae, right knee; M25.561 Pain in right knee; M25.461 Effusion, right knee
CPT/HCPCS: 73721

== ENCOUNTER → 2024-11-05 07:48 | Outpatient (CLI) | payer MEDICARE, SELFPAY ==
[2024-11-05 09:03] LABS: Cholesterol 162 mg/dL (140-199); HDL Cholesterol 83 mg/dL (40-60); LDL Cholesterol Calculated 65 mg/dL (<100); Triglycerides 70 mg/dL (35-150)
[2024-11-05 10:29] LABS: Microalbumin Urine Random < 0.6 mg/dL (0-1.6)
== END ==
PROVIDERS: Family Provider Nurse Practitioner; PCP Nurse Practitioner Family; Referring Provider Nurse Practitioner Family; Visit Provider Nurse Practitioner Family
DX: E78.5 Hyperlipidemia, unspecified (principal); R80.9 Proteinuria, unspecified
CPT/HCPCS: 36415; 80061; 82043; 82570

== ENCOUNTER → 2024-11-14 10:17 | Outpatient (CLI) | payer MEDICARE, SELFPAY ==
--- NOTE | 2024-11-14 10:17 | DI.RAD.S_ITS ---
PROCEDURE: XR DEXA AXIAL SKELETON INDICATIONS: Osteoporosis screening COMPARISON: [facility], CR, XR DEXA AXIAL SKELETON, 08/23/2022, 9:48. FINDINGS: Lumbar Spine: Bone mineral density 1.216 (previously 1.215) g/cm2, T score 1.8 (previously 1.8). Left Femoral Neck: Bone mineral density 0.888 (previously 0.927) g/cm2, T score 0.4 (previously 0.7). Left Hip: Bone mineral density 1.053 (previously 1.042) g/cm2, T score 0.9 (previously 0.8). Fracture Risk Calculation (when applicable): 10-year fracture risk of a major osteoporotic fracture 6.7 percent and of a hip fracture 0.4 percent. (T score greater or equal to -1.0 to: NORMAL) (T score from -1.1 to -2.4: OSTEOPENIA) (T score less than or equal to -2.5: OSTEOPOROSIS) IMPRESSION: Normal---recommend repeat DEXA as clinically indicated. Follow-up guidelines as follows: Osteoporosis: Consider a repeat DEXA and Vertebral Fracture Assessment (VFA) exam in 2 years or sooner if medically necessary, to reassess this patient's status. Osteopenia: Consider a repeat DEXA in 2-3 years to reassess this patient's status, or if there is a new clinical indication. Normal: Consider a repeat DEXA in 5 years or sooner, or if there is a new clinical indication. All treatment decisions require clinical judgment and consideration of individual patient factors, including patient preferences, comorbidities, previous drug use, risk factors not captured in the FRAX model (e.g., frailty, falls, vitamin D deficiency, increased bone turnover, interval significant decline in bone density ) and possible under- or over-estimation of fracture risk by FRAX. In addition, the NOF Guide recommends that FDA-approved medical therapies be considered in postmenopausal women and men age >= 50 years with a: * Hip or vertebral (clinical or morphometric) fracture * T-score of <=-2.5 at the spine or hip * Ten-year fracture probability by FRAX of >= 3% for hip fracture or >=20% for major osteoporotic fracture. Dictated by: Sam Garcia M.D. on 11/15/2024 at 6:24 Approved by: Sam Garcia M.D. on 11/15/2024 at 6:33
== END ==
PROVIDERS: Family Provider Nurse Practitioner; PCP Nurse Practitioner Family; Referring Provider Nurse Practitioner Family; Visit Provider Nurse Practitioner Family
DX: M85.89 Other specified disorders of bone density and structure, multiple sites (principal); Z78.0 Asymptomatic menopausal state
CPT/HCPCS: 77080

== ENCOUNTER → 2025-02-17 09:55 | Outpatient (CLI) | payer MEDICARE, SELFPAY ==
--- NOTE | 2025-02-17 09:57 | DI.MG.S_ITS ---
MM screening mammo BI: 02/17/2025. BI-RADS: 1 CLINICAL: 75-year old female for bilateral screening mammogram. Tyrer-Cuzick lifetime risk of 4.6%. No personal or first-degree family history of breast cancer. PRIOR EXAMS 07/25/2023, 05/30/2022, 01/31/2021, 01/15/2021. MAMMOGRAPHY TECHNIQUE: 2D and 3D (tomosynthesis) digital mammographic views obtained, with additional images as needed for full coverage. Current study was also evaluated with a Computer Aided Detection (CAD) system. DENSITY C. The breasts are heterogeneously dense, which may obscure small masses. MAMMOGRAPHY FINDINGS Bilateral: No suspicious mass, asymmetry, microcalcification, or other abnormality seen. IMPRESSION: * No evidence of malignancy. RECOMMENDATIONS Bilateral * Annual screening mammography. OVERALL ASSESSMENT CATEGORY BI-RADS-1: Negative. The [employer] recommends annual screening mammography beginning at age 40 for women with average risk of breast cancer. ELECTRONICALLY SIGNED: Rudolph Knutson M.D. on 02/17/2025 at 12:42:19 PM PT Interpreting Station ID: [id number]
== END ==
PROVIDERS: Family Provider Nurse Practitioner; PCP Nurse Practitioner Family; Referring Provider Nurse Practitioner Family; Visit Provider Nurse Practitioner Family
DX: Z12.31 Encounter for screening mammogram for malignant neoplasm of breast (principal); R92.333 Mammographic heterogeneous density, bilateral breasts
CPT/HCPCS: 77063; 77067

== ENCOUNTER 2025-07-09 09:31 | Observation (INO) | payer MEDICARE, SELFPAY ==
[2025-07-09] VITALS (19 sets, daily range): BP systolic 126–203; BP diastolic 64–108; PULSE 63–164; RESP 12–31; TEMP 36.6–36.9; O2SAT 96–99; BMI 31.8
--- NOTE | 2025-07-09 09:44 | EKG_ITS ---
[facility] [id number] [place] [id number] Test Date: 2025-07-09 Pat Name: Mikayla Dillard Department: Room: Gender: Female Process Architect: OLAMIDE : 1950 Requested By: Order Number: [id number] Reading MD: Alfa Bobby MD Measurements Intervals [place] Rate: 157 P: CO: QRS: 80 QRSD: 122 T: -39 QT: 300 QTc: 485 Interpretive Statements Critical Test Result: High HR Atrial fibrillation with rapid ventricular response Right bundle branch block (old) T wave abnormality, consider inferior ischemia Electronically Signed On 07-09-2025 14:36:13 PST by Alfa Bobby MD
--- NOTE | 2025-07-09 09:45 | DI.RAD.S_ITS ---
PROCEDURE: XR CHEST 1V INDICATIONS: Chest Pain TECHNIQUE: One view of the chest was acquired. COMPARISON: [facility], CR, XR CHEST 1V, 04/01/2024, 15:32. FINDINGS: New mild bilateral perihilar and lower lobe peribronchial thickening, some of which may be related expiratory result; however, bronchitis, viral infection, asthma or other process should be considered. New mild bibasilar subsegmental atelectasis. Degenerative changes of the thoracic spine and shoulders unchanged. No pneumothorax, no pleural effusion, no lobar consolidation. Cardiopericardial silhouette and pulmonary vasculature within normal limits. IMPRESSION: New mild peribronchial thickening and subsegmental atelectasis as discussed above. If symptoms persist or worsen, CT chest could be performed. Dictated by: Lacho Rodríguez M.D. on 07/09/2025 at 10:15 Approved by: Lacho Rodríguez M.D. on 07/09/2025 at 10:18
--- NOTE | 2025-07-09 09:54 | ED.ARRPALP ---
HPI - Arrhythmia/Palpitations General Chief Complaint: Arrhythmia/Palpitations Stated Complaint: Sent from [facility], Light headed , high ,low BP Time Seen by Provider: 07/09/25 09:33 Source: patient, family, RN notes reviewed and old records reviewed Mode of arrival: Family Vehicle Limitations: no limitations History of Present Illness HPI narrative: 75-year-old female with history of hypertension, asthma on fluticasone daily, dyslipidemia presents with complaint of feeling lightheadedness and some chest tightness this morning. Patient states chest discomfort has resolved. She has not had any syncope. She does not feel short of breath. She denies any diaphoresis. No nausea or vomiting. No GI or urinary symptoms. No new swelling of her extremities no pain warmth or erythema of the extremities. Patient states she checked her blood pressure and noticed that it was having trouble getting a number and that her heart rate was jumping all around. She does not has a history of any cardiac arrhythmias, she does not take any aspirin or thinners. States home medications are losartan, statin, rescue inhaler and fluticasone daily. Patient has not had any prior cardiac interventions has a remote history of a trimalleolar fracture. Reports an allergy to hydrochlorothiazide which was dizziness. No tobacco, has 3-4 alcoholic drinks weekly but was in [place] last week has a little bit more alcohol than typical. Denies any recreational drugs. She did fly back from [place] Sunday. Her primary care is Heena Jaeger. Related Data Home Medications ?Medication ?Instructions ?Recorded ?Confirmed cyclobenzaprine 10 mg tablet 10 mg PO BID PRN muscle spasm 10/08/24 07/09/25 albuterol 90 mcg-budesonide 80 2 inh inhalation ONCE 05/28/25 07/09/25 mcg/actuation HFA aerosol inhaler (Airsupra) Previous Rx's ?Medication ?Instructions ?Recorded losartan 50 mg tablet 100 mg (2 x 50 mg) PO DAILY #180 11/05/24 tabs propranolol 10 mg tablet 10 mg PO ONCE PRN anxiety #30 tabs 11/05/24 albuterol 90 mcg-budesonide 80 2 inh inhalation ONCE #10.7 grams 02/04/25 mcg/actuation HFA aerosol inhaler rosuvastatin 10 mg tablet 10 mg PO DAILY #90 tabs 02/23/25 fluticasone 250 mcg-salmeterol 50 1 inh inhalation BID #60 ea 03/10/25 mcg/dose blistr powdr for inhalation estradiol 0.01% (0.1 mg/gram) 1 g vaginal 3XW #42.5 grams 05/18/25 vaginal cream Allergies Allergy/AdvReac Type Severity Reaction Status Date / Time hydrochlorothiazide Allergy Mild LIGHTHEADED Verified 07/09/25 09:32 SKIN ADRIANA Allergy Mild ITCHY, Uncoded 07/09/25 09:32 REDNESS AT EDGES Review of Systems Review of Systems ROS Unobtainable: All systems reviewed & are unremarkable except as noted in HPI and below Patient History Medical History Bilateral primary osteoarthritis of knee Right anterior shoulder pain Arthralgia of both knees Ankle joint pain Abdominal hernia Hyperlipidemia Congenital abnormality of kidney Gastroesophageal reflux disease Hypertension UTI (urinary tract infection), uncomplicated (03/09/03) Tear of medial meniscus of knee, current (02/22/05) Pap smear for cervical cancer screening (03/15/04) Neck pain (09/29/02) Closed trimalleolar fracture of right ankle with delayed healing (08/09/16) Family history of malignant neoplasm of colon in mother (09/02/15) Asthma, mild intermittent, well-controlled (02/22/16) Allergic rhinitis Essential hypertension Mixed hyperlipidemia (01/06/03) Surgical History Status post hernia repair Family History Father Age: 98 Dementia Hypertension Mother Colon cancer Social History household members: spouse Smoking Status: Never smoker alcohol intake: current substance use type: does not use alcohol intake frequency: holidays/special occasions only Exam Narrative Exam Narrative: GENERAL: Alert and oriented x three, female in mild distress HEENT: Head normocephalic, atraumatic, EOMI, pupils reactive, face symmetric, moist mucous membranes NECK: Supple, full range of motion CARDIOVASCULAR: Irregularly irregular and tachycardic rate and rhythm without murmurs, rubs or gallops. No JVD. No edema, warmth or erythema of the lower extremities or upper extremities. RESPIRATORY: Breath sounds equal bilaterally, no wheezes rales or rhonchi. No tachypnea or accessory muscle use ABDOMEN: Soft, nontender. Normoactive bowel sounds all 4 quadrants. No guarding or rebound, rigidity, no mass : No CVA tenderness EXTREMITIES: Normal range of motion, no clubbing or edema. Neurovascularly intact NEUROLOGICAL: Cranial nerves II through XII grossly intact. Moving all extremities SKIN: Warm, dry, no petechiae, no rashes or lesions. Initial Vital Signs Initial Vital Signs: Vital Signs Pulse Rate 150 H 07/09/25 09:38 Pulse Oximetry 98 07/09/25 09:38 Course Orders Ordered: ED Orders 07/09/25 09:44 EKG-12 Lead Stat 07/09/25 09:45 XR chest 1V Stat 07/09/25 09:55 Complete Blood Count AUTO DIFF Stat Comprehensive Metabolic Panel Stat D Dimer Stat Lipase Stat Magnesium Stat NT-proBNP (BNP-Adult 18+) Stat PTT Partial Thromboplastin Zeferino Stat Prothrombin Time INR Stat Troponin & CK Cardiac Panel Stat 07/09/25 11:29 EKG-12 Lead Stat 07/09/25 11:50 Trop I [Troponin I] Stat Acetaminophen (Acetaminophen 325 Mg Tablet) 650 mg PO Q6H PRN PRN Reason: Fever/Mild Pain (1-3) Metoprolol Tartrate (Metoprolol Ir 25 Mg Tablet) 12.5 mg PO BID GEORGE Naloxone HCl (Naloxone 0.4 Mg/Ml Vial) 0.2 mg IV Q2MIN PRN PRN Reason: Opiate Reversal Discontinued Medications Aspirin (Aspirin 81 Mg Chew Tab) 324 mg PO NOW ONE Stop: 07/09/25 09:46 Last Admin: 07/09/25 10:00 Dose: Not Given Documented By: RB Diltiazem HCl (Diltiazem 25 Mg/5 Ml Sdv) 10 mg IV NOW ONE Stop: 07/09/25 09:55 Last Admin: 07/09/25 10:00 Dose: 10 mg Documented By: RB Sodium Chloride (Normal Saline 0.9%) 1,000 mls @ 1,000 mls/hr IV BOLUS ONE Stop: 07/09/25 10:53 Last Infusion: 07/09/25 10:45 Dose: Infused Documented By: Admin: 07/09/25 09:59 Dose: 1,000 mls/hr Documented By: RB Metoprolol Tartrate (Metoprolol Ir 25 Mg Tablet) 12.5 mg PO NOW ONE Stop: 07/09/25 13:46 Last Admin: 07/09/25 14:18 Dose: 12.5 mg Documented By: AUGIE Vital Signs Vital signs: Vital Signs - 8 hr 07/09/25 09:38 07/09/25 09:40 07/09/25 09:42 Temperature 98 F Pulse Rate 150 H 160 H 164 H Respiratory Rate 20 Blood Pressure 126/64 Pulse Oximetry 98 99 98 Oxygen Delivery Method Room Air 07/09/25 09:42 07/09/25 09:48 07/09/25 09:48 Temperature Pulse Rate 156 H Respiratory Rate Blood Pressure 126/73 126/85 Pulse Oximetry 99 Oxygen Delivery Method 07/09/25 10:00 07/09/25 10:00 07/09/25 10:44 Temperature Pulse Rate 116 H 117 H Respiratory Rate 17 Blood Pressure 126/85 136/80 Pulse Oximetry 99 Oxygen Delivery Method 07/09/25 11:00 07/09/25 11:30 07/09/25 12:00 Temperature Pulse Rate 74 73 93 H Respiratory Rate 26 H 29 H 31 H Blood Pressure Pulse Oximetry 97 98 97 Oxygen Delivery Method 07/09/25 12:30 07/09/25 13:00 07/09/25 13:30 Temperature Pulse Rate 68 70 68 Respiratory Rate 12 19 17 Blood Pressure Pulse Oximetry 98 98 99 Oxygen Delivery Method MDM - Arrhythmia/Palpitations Lab Data 07/09/25 09:55 07/09/25 09:55 Labs: Lab Results 07/09/25 07/09/25 Range/Units 09:55 11:50 WBC 7.4 (4.5-11.0) X10^3/uL RBC 4.92 (4.0-5.2) X10^6/uL Hgb 15.6 (12.0-16.0) g/dL Hct 46.0 (36-46) % MCV 93.5 (80-100) fL MCH 31.7 (26-34) PG MCHC 33.9 (30-36) % RDW 13.4 (11.6-14.8) % Plt Count 242 (150-400) X10^3/uL Neut % (Auto) 69.0 (50-75) % Lymph % (Auto) 22.0 L (25-40) % [place] % (Auto) 6.5 (3-14) % Eos % (Auto) 1.6 L (2-4) % Baso % (Auto) 0.9 (0-2) % Neut # (Auto) 5100 (3812-5500) /uL Lymph # (Auto) 1600 (4634-0949) /uL [place] # (Auto) 500 (0-900) /uL Eos # (Auto) 100 (0-450) /uL Baso # (Auto) 100 (0-100) /uL PT 10.5 (9.4-12.5) SECONDS INR 0.9 (0.9-1.3) APTT 30 (25.1-36.5) SECONDS D-Dimer 296 (<500) ng/ml Sodium 138 (137-145) mmol/L Potassium 4.2 (3.4-5.1) mmol/L Chloride 108 H (98-107) mmol/L Carbon Dioxide 23 (22-32) mmol/L BUN 18 H (7-17) mg/dL Creatinine 0.85 (0.52-1.04) mg/dL Estimated GFR > 60 (>60) mL/min BUN/Creatinine Ratio 21.2 (6-22) Glucose 173 H (70-99) mg/dL Calcium 9.9 (8.4-10.2) mg/dL Magnesium 1.9 (1.6-2.3) mg/dL Total Bilirubin 0.8 (0.2-1.3) mg/dL AST 38 H (14-36) IU/L ALT 28 (<35) IU/L Alkaline Phosphatase 99 (38-126) U/L Total Creatine Kinase 56 (30-135) U/L Troponin I < 0.012 < 0.012 (0.01-0.034) ng/mL NT-Pro-B Natriuret Pep 1290 H (<125) pg/mL Total Protein 7.4 (6.3-8.2) g/dL Albumin 4.3 (3.5-5.0) g/dL Globulin 3.1 (1.7-4.1) g/dL Albumin/Globulin Ratio 1.4 (1.0-2.8) Lipase 128 (23-300) U/L Urine Dip Bedside Urine Glucose Negative Bedside Urine Bilirubin - Negative Bedside Urine Ketone - Negative Urine Specific [place] 1.010 Bedside Urine Occult Blood - Negative Bedside Urine pH 6.5 Bedside Urine Protein - Negative Bedside Urine Urobilinogen - Negative Bedside Urine Nitrite - Negative Bedside Urine Leukocytes - Negative Esterase MDM Narrative Medical decision making narrative: EKG shows AFib with rapid ventricular response, right bundle-branch block rate of 157 QRS of 122 QTC of 485. Patient has prior from 04/01/2024 which showed sinus rhythm with a right bundle-branch block. Patient does have some T-wave depression today. Sinus rhythm right bundle-branch block rate of 68 VT 150 QRS of [address]TC [address] No acute ST-elevation depression noted. Labs normal CBC, D-dimer is 296, INR PTT are normal. Potassium is 4.2 magnesium is 1.9 electrolytes are otherwise appropriate glucose is 173 troponins less than 0.012 with a BNP of 12 90. Chest x-ray shows new mild peribronchial thickening subsegmental atelectasis as discussed above. Patient has noted a little bit of recent cough and viral symptoms. Patient had fluids and diltiazem. Patient appeared to have cardioverted but has been intermittently in atrial fibrillation here in the department. Unclear exact onset patient had some chest discomfort today but no sensation of elevated heart rate she is not anticoagulated I would not cardiovert her today. Spoke with the hospitalist, Dr. Pike plan for observation for new onset atrial fibrillation patient did appear cardioverted but on telemetry she sometimes sleeps back and forth sometimes bouncing between 60 and 100 although more persistently at 60. We will keep for observation we will give a dose of oral metoprolol 12.5 mg Discharge Plan Departure Patient Disposition: Admitted as Observation Clinical Impression: Atrial fibrillation with rapid ventricular response Admit Date/Time: 07/09/25 13:50 Admit Provider: Jj Pike
[2025-07-09] MEDS: SODIUM CHLORIDE 0.9% 1,000 ML 1000 ML IV (09:59)
[2025-07-09 10:03] LABS: Add Manual Diff / Slide Review NO; Hematocrit 46.0 % (36-46); Hemoglobin 15.6 g/dL (12.0-16.0); Lymphocytes Absolute Auto 1600 /uL (1100-4500); Mean Corpuscular HGB Conc 33.9 % (30-36); Mean Corpuscular Hemoglobin 31.7 PG (26-34); Mean Corpuscular Volume 93.5 fL (80-100); Platelet Count 242 X10^3/uL (150-400)
[2025-07-09 10:12] LABS: INR 0.9 (0.9-1.3); Prothrombin Time 10.5 SECONDS (9.4-12.5)
[2025-07-09 10:15] LABS: PTT Partial Thromboplastin Tim 30 SECONDS (25.1-36.5)
[2025-07-09 10:22] LABS: Alanine Aminotransferase 28 IU/L (<35); Albumin 4.3 g/dL (3.5-5.0); Albumin Globulin Ratio 1.4 (1.0-2.8); Alkaline Phosphatase 99 U/L (38-126); Blood Urea Nitrogen 18 mg/dL (7-17); Calcium 9.9 mg/dL (8.4-10.2); Carbon Dioxide 23 mmol/L (22-32); Chloride 108 mmol/L (98-107); Creatine Kinase 56 U/L (30-135); Estimated Glomerular Filt Rate > 60 mL/min (>60); Globulin 3.1 g/dL (1.7-4.1); Glucose 173 mg/dL (70-99); HEMOLYSIS < 15 (0-50); Lipase 128 U/L (23-300); Magnesium 1.9 mg/dL (1.6-2.3); Potassium 4.2 mmol/L (3.4-5.1); Sodium 138 mmol/L (137-145); Total Protein 7.4 g/dL (6.3-8.2)
[2025-07-09 10:34] LABS: NT-proBNP (BNP-Adult 18+) 1290 pg/mL (<125); Troponin I < 0.012 ng/mL (0.01-0.034)
--- NOTE | 2025-07-09 11:29 | EKG_ITS ---
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
[2025-07-09 12:21] LABS: Troponin I < 0.012 ng/mL (0.01-0.034)
[2025-07-09] MEDS: METOPROLOL IR 25 MG TABLET 12.5 MG PO ×2 (14:18→21:37)
--- NOTE | 2025-07-09 15:06 | PM.HP.1 ---
History of Present Illness History of Present Illness Date Patient Seen: 07/09/25 Time Patient Seen: 15:06 Chief complaint: Sent from [facility], Light headed , high ,low BP Narrative: The patient was a 75-year-old female with a history of hypertension, asthma, and dyslipidemia. She presented to the ED with chest tightness and feeling lightheaded. Upon her arrival her pain had resolved. She denies history of syncopal episodes. In the ED she was found to be in atrial fibrillation with paroxysmal activity. She was given 1 dose of oral metoprolol for rate control. She was no known history of atrial fibrillation and a D-dimer was checked due to recent travel. A time-out was negative. CT angiogram was not obtained. She was admitted for rate control and echo. She denies any residual chest pain or known history of CAD. [facility] Medical History Bilateral primary osteoarthritis of knee Right anterior shoulder pain Arthralgia of both knees Ankle joint pain Abdominal hernia Hyperlipidemia Congenital abnormality of kidney Gastroesophageal reflux disease Hypertension UTI (urinary tract infection), uncomplicated (03/09/03) Tear of medial meniscus of knee, current (02/22/05) Pap smear for cervical cancer screening (03/15/04) Neck pain (09/29/02) Closed trimalleolar fracture of right ankle with delayed healing (08/09/16) Family history of malignant neoplasm of colon in mother (09/02/15) Asthma, mild intermittent, well-controlled (02/22/16) Allergic rhinitis Essential hypertension Mixed hyperlipidemia (01/06/03) Surgical History Status post hernia repair Family History Father Age: 98 Dementia Hypertension Mother Colon cancer Social History household members: spouse Smoking Status: Never smoker alcohol intake: current substance use type: does not use Meds Home Medications and Allergies Home Medications ?Medication ?Instructions ?Recorded ?Confirmed ?Type cyclobenzaprine 10 mg tablet 10 mg PO BID PRN muscle spasm 10/08/24 07/09/25 History losartan 50 mg tablet 100 mg (2 x 50 mg) PO DAILY #180 11/05/24 07/09/25 Rx tabs propranolol 10 mg tablet 10 mg PO ONCE PRN anxiety #30 tabs 11/05/24 07/09/25 Rx albuterol 90 mcg-budesonide 80 2 inh inhalation ONCE #10.7 grams 02/04/25 07/09/25 Rx mcg/actuation HFA aerosol inhaler rosuvastatin 10 mg tablet 10 mg PO DAILY #90 tabs 02/23/25 07/09/25 Rx fluticasone 250 mcg-salmeterol 50 1 inh inhalation BID #60 ea 03/10/25 07/09/25 Rx mcg/dose blistr powdr for inhalation estradiol 0.01% (0.1 mg/gram) 1 g vaginal 3XW #42.5 grams 05/18/25 07/09/25 Rx vaginal cream albuterol 90 mcg-budesonide 80 2 inh inhalation ONCE 05/28/25 07/09/25 History mcg/actuation HFA aerosol inhaler (Airsupra) Allergies Allergy/AdvReac Type Severity Reaction Status Date / Time hydrochlorothiazide Allergy Mild LIGHTHEADED Verified 07/09/25 09:32 SKIN ADRIANA Allergy Mild ITCHY, Uncoded 07/09/25 09:32 REDNESS AT EDGES Review of Systems Review of Systems Narrative: All else reviewed and otherwise unremarkable except as noted in the history and physical. Exam Vital Signs (past 8 hours): - 07/09/25 09:38 07/09/25 09:40 07/09/25 09:42 Temperature 98 F Pulse Rate 150 H 160 H 164 H Respiratory Rate 20 Blood Pressure 126/64 Pulse Oximetry 98 99 98 Oxygen Delivery Method Room Air 07/09/25 09:42 07/09/25 09:48 07/09/25 09:48 Temperature Pulse Rate 156 H Respiratory Rate Blood Pressure 126/73 126/85 Pulse Oximetry 99 Oxygen Delivery Method 07/09/25 10:00 07/09/25 10:00 07/09/25 10:44 Temperature Pulse Rate 116 H 117 H Respiratory Rate 17 Blood Pressure 126/85 136/80 Pulse Oximetry 99 Oxygen Delivery Method 07/09/25 11:00 07/09/25 11:30 07/09/25 12:00 Temperature Pulse Rate 74 73 93 H Respiratory Rate 26 H 29 H 31 H Blood Pressure Pulse Oximetry 97 98 97 Oxygen Delivery Method 07/09/25 12:30 07/09/25 13:00 07/09/25 13:30 Temperature Pulse Rate 68 70 68 Respiratory Rate 12 19 17 Blood Pressure Pulse Oximetry 98 98 99 Oxygen Delivery Method 07/09/25 14:00 07/09/25 14:20 07/09/25 14:30 Temperature Pulse Rate 71 108 H 105 H Respiratory Rate 22 22 23 Blood Pressure Pulse Oximetry 97 98 98 Oxygen Delivery Method Oxygen Delivery Method Room Air Narrative Exam Narrative: NAD, alert and oriented, fluent speech, calm. Normocephalic skull, EOMI, anicteric sclera, symmetric pupils. Oropharynx unremarkable, no droop. Neck supple, midline trachea, no adenopathy. Lungs clear, normal rate and effort. Heart regular, no murmur gallop or rub. Abdomen is soft, non distended and non tender. Extremities are free of edema. Skin is free of rash or lesions. Joints are not swollen or deformed. Judgment appears to be normal. Objective ECG Impression: Intervals [place] Rate: 68 P: 51 TN: 150 QRS: 24 QRSD: 124 T: 11 QT: 410 QTc: 435 Interpretive Statements Normal sinus rhythm Right bundle branch block (old) Imaging Chest x-ray: Radiologist's impression: New mild peribronchial thickening and subsegmental atelectasis as discussed above. If symptoms persist or worsen, CT chest could be performed. Labs 07/09/25 09:55 07/09/25 09:55 Labs: Laboratory Results - last 24 hr 07/09/25 07/09/25 09:55 11:50 WBC 7.4 RBC 4.92 Hgb 15.6 Hct 46.0 MCV 93.5 MCH 31.7 MCHC 33.9 RDW 13.4 Plt Count 242 Neut % (Auto) 69.0 Lymph % (Auto) 22.[address] [place] % (Auto) 6.5 Eos % (Auto) 1.6 L Baso % (Auto) 0.9 Neut # (Auto) 5100 Lymph # (Auto) [address] [place] # (Auto) 500 Eos # (Auto) 100 Baso # (Auto) 100 PT 10.5 INR 0.9 APTT 30 D-Dimer 296 Sodium 138 Potassium 4.2 Chloride 108 H Carbon Dioxide 23 BUN 18 H Creatinine 0.85 Estimated GFR > 60 BUN/Creatinine Ratio 21.2 Glucose 173 H Calcium 9.9 Magnesium 1.9 Total Bilirubin 0.8 AST 38 H ALT 28 Alkaline Phosphatase 99 Total Creatine Kinase 56 Troponin I < 0.012 < 0.012 NT-Pro-B Natriuret Pep 1290 H Total Protein 7.4 Albumin 4.3 Globulin 3.1 Albumin/Globulin Ratio 1.4 Lipase 128 Assessment & Plan Assessment & Plan narrative: 1. Presumably new paroxysmal atrial fibrillation, improved. 2. Intermittent chest pressure and presyncopal symptoms likely related to 1. 3. Hypertension, stable. 4. Asthma, stable. 5. Hyperlipidemia, stable. PLAN: -metoprolol 12.5 b.i.d. and monitor heart rate and prevalence of atrial fibrillation overnight. -discuss with Dr. Hernandez tomorrow, she will likely initiate cardiology follow up with him. Anticipate 1 midnight in the hospital, supports observation status. Full resuscitation. Social history: She lives with her at [place]. They have 2 sons they are as well. Time-Based Coding :: 35 min spent with patient and on the chart (including review of chart, obtaining history, exam, reviewing outside data, placing orders, documenting exam and treatment plan, and counseling patient) on 07/09/2025. Quality MIPS - Admit I confirm the patient?s Advance Care Plan is present, Code status is documented, Surrogate decision maker is in patient?s record [If Yes, STOP here]: Yes MIPS - Meds 'Current medications' to include all prescriptions, [id number] products, herbals, cannabis/cannabidiol products, and vitamin/mineral/dietary (nutritional) supplements. I have utilized all available resources to obtain, update, or review the patient?s current medications. [If Yes, STOP here]: Yes
--- NOTE | 2025-07-09 16:15 | PC.ADMIT ---
[email or web address] Admission Note: PT ADMITTED AT 1445 BY [facility]. A/OX4 WITH NO C/O SOB OR CHEST PAIN AT THIS TIME. REFUSING BP READING AT TIME OF ADMISSION D/T WHITE COAT SYNDROME. PT REQUESTING TO STAY IN HER CLOTHES/ WANTING TO SIT IN CHAIR. HEART RATE SINUS RHYTHM IN 60-70S. AT BEDSIDE. DR VALERIO BY TO DISCUSS PLAN OF CARE WITH PATIENT/ . AFTER PATIENT SETTLED, BP CHECKED AND WAS 203/108 ON MONITOR. WHEN CHECKED WITH MANUAL CUFF (PATIENT PREFERENCE), BP WAS 190/100. NO C/O HEADACHE OR LIGHTHEADEDNESS AT THIS TIME. 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 MADE AWARE OF ALL FINDINGS. NO NEW ORDERS AT THIS TIME. PT COMFORTABLE IN CHAIR WITH AT BEDSIDE. NO CONCERNS AT THIS TIME. CARE ONGOING. The patient,Mikayla Dillard,75 y/o, was given written information regarding hospital policies, unit procedures and contact persons. Patient's smoking status: Never smoker. Vital Signs - 8 hr 07/09/25 09:38 07/09/25 09:40 07/09/25 09:42 Temperature 98 F Pulse Rate 150 H 160 H 164 H Respiratory Rate 20 Blood Pressure 126/64 Pulse Oximetry 98 99 98 Oxygen Delivery Method Room Air 07/09/25 09:42 07/09/25 09:48 07/09/25 09:48 Temperature Pulse Rate 156 H Respiratory Rate Blood Pressure 126/73 126/85 Pulse Oximetry 99 Oxygen Delivery Method 07/09/25 10:00 07/09/25 10:00 07/09/25 10:44 Temperature Pulse Rate 116 H 117 H Respiratory Rate 17 Blood Pressure 126/85 136/80 Pulse Oximetry 99 Oxygen Delivery Method 07/09/25 11:00 07/09/25 11:30 07/09/25 12:00 Temperature Pulse Rate 74 73 93 H Respiratory Rate 26 H 29 H 31 H Blood Pressure Pulse Oximetry 97 98 97 Oxygen Delivery Method 07/09/25 12:30 07/09/25 13:00 07/09/25 13:30 Temperature Pulse Rate 68 70 68 Respiratory Rate 12 19 17 Blood Pressure Pulse Oximetry 98 98 99 Oxygen Delivery Method 07/09/25 14:00 07/09/25 14:20 07/09/25 14:30 Temperature Pulse Rate 71 108 H 105 H Respiratory Rate 22 22 23 Blood Pressure Pulse Oximetry 97 98 98 Oxygen Delivery Method 07/09/25 15:15 07/09/25 15:30 07/09/25 15:45 Temperature 98.5 F Pulse Rate 77 68 Respiratory Rate 16 Blood Pressure 203/108 H 190/100 H Pulse Oximetry 97 Oxygen Delivery Method Room Air
[2025-07-10] VITALS (7 sets, daily range): BP systolic 156–195; BP diastolic 84–102; PULSE 54–78; RESP 18; TEMP 36.1–36.8; O2SAT 96–99
--- NOTE | 2025-07-10 08:16 | DI.ECHO.S_ITS ---
[place] [facility] : : [address] : : [place] : : [id number] : : Phone: [phone] Echocardiogram Report + + :Name: DEJON POST Study Date: 07/10/2025 Height: 62 in : :[facility] ReadingLocation: Weight: 174 lb : : Gender: Female BSA: 1.8 m2 : :: 1950 Age: 75 yrs BP: 165/90 mmHg: :Reason For Study: Abnormal EKG : :Ordering Physician: IMAN, : :KATHY Foote Performed By: Elijah Ba : :Referring: KATHY VALERIO : + + Interpretation Summary Normal biventricular size and systolic function. LVEF is 60 to 65%. No focal wall motion abnormalities are noted. Normal atrial sizes. No significant valvular pathology is noted. No significant pulmonary hypertension. Other findings as below. Procedure: A two-dimensional transthoracic echocardiogram with color flow and Doppler was performed. The study quality was technically adequate. There is no prior echocardiogram noted for this patient. The heart rate ranged between 57-68 bpm during the study. Left Ventricle: The left ventricle is normal in size. Left ventricular wall thickness is at the upper limits of normal. Left ventricular systolic function is normal. The ejection fraction is estimated to be 60-65%. There are no focal wall motion abnormalities. Diastolic function is indeterminate. Right Ventricle: The right ventricle is normal in size and function. Atria: The left atrial size is normal. Right atrial size is normal. There is no Doppler evidence for an interatrial shunt. Mitral Valve: The mitral valve leaflets appear to open well. There is no mitral valve stenosis. There is trace mitral regurgitation. Aortic Valve: The aortic valve is trileaflet. The aortic valve opens well. There is no aortic valve stenosis. No aortic regurgitation is present. Tricuspid Valve: The tricuspid valve leaflets are thin and pliable. There is mild tricuspid regurgitation. The right ventricular systolic pressure is estimated to be at least 28 mmHg based on an estimated right atrial pressure of 3 mm Hg. Pulmonic Valve: The pulmonic valve is not well seen, but is grossly normal. There is trace pulmonic regurgitation. Great Vessels: The aortic root is normal size. The ascending aorta is normal in size. The aortic arch could not be visualized. The pulmonary artery is normal size. The IVC is of normal diameter and collapses greater than 50% with a sniff. This suggests a low right atrial pressure of 3 mm Hg. Pericardium/ Pleura There is no pericardial effusion. MMode/2D Measurements & Calculations LVIDd: 4.7 cm LVOT diam: 2.0 cm LVIDs: 3.0 cm Ao root diam: 3.2 cm FS: 36.3 % asc Aorta Diam: 3.1 cm IVSd: 0.96 cm LVPWd: 0.95 cm LV patterson. diameter/BSA (cm/m^2): 2.6 LV sys. diameter/BSA (cm/m^2): 1.7 LA A2 area: 15.3 cm2 RA long axis: 4.7 cm LA A4 area: 17.2 cm2 RA area: 13.6 cm2 LA length (vol): 5.2 cm RA vol: 33.6 ml LA vol: 42.9 ml RA : 18.7 ml/m2 LA vol index: 23.8 ml/m2 IVC diam: 1.4 cm RVD1 (basal): 3.1 cm RVD2 (mid): 2.8 cm TAPSE: 1.8 cm Doppler Measurements & Calculations Ao V2 max: 126.8 cm/sec LVOT Max Can: 99.1 cm/sec Ao V2 mean: 92.3 cm/sec LV V1 max P.9 mmHg Ao max P.4 mmHg LV V1 VTI: 21.9 cm Ao mean P.7 mmHg RAFAT(I,D): 2.6 cm2 Ao V2 VTI: 27.1 cm RAFAT(V,D): 2.5 cm2 sev ratio: 0.81 RAFAT indexed to BSA (cm^2/m^2): 1.4 TR max can: 250.1 cm/sec SV(LVOT): 69.7 ml TR max P.2 mmHg PA V2 max: 67.9 cm/sec PA V2 mean: 53.2 cm/sec PA mean P.2 mmHg PA pr(Accel): 17.3 mmHg Qp/Qs (V,Ao): 1.0/3.9 Qp/Qs (VLVEFRA): 1.0/1.2 Reading Physician:12:37 PM
[2025-07-10] MEDS: LOSARTAN 50 MG TABLET 100 MG PO (08:49)
[2025-07-10] MEDS: ATORVASTATIN 20 MG TABLET PO (08:49)
[2025-07-10] MEDS: METOPROLOL IR 25 MG TABLET 12.5 MG PO (08:50)
--- NOTE | 2025-07-10 08:53 | CM.DANOTE ---
Addendum entered by Karlene Wilson RN 07/10/25 08:58: [place] [facility] TO [place] PROVIDED. Original Note: Initial DCP Assessment Note. Review EMR and PT Interview. Met with patient at bedside to discuss discharge needs.PT is alert x 4 sitting up in chair. No acute distress. Independent. Lives with spouse. Payor:??[facility] PCP: BUNCHER OPERATOR: Heena Jaeger Summary & Plan:?75yo female arrived to ED via POV c/o light headedness and low BP. Admitted OBS ICU. Dx. A.Fib with RVR. Plan: IV and PO medications for HR control, Cardiology consult, and echo. Discharge Planning/Care Management Advanced directive, confirm from FAMILY Start: 07/09/25 14:59 Freq: Q24H Status: Active Protocol: Document 07/09/25 14:59 DM (Rec: 07/09/25 16:00 DM [id number]) Advance Directive, confirm on record Time 16:00 Person contacted [facility]- ADV DIRECTIVE IS AT HOME ON [place] Copy received No CM Discharge Assessment Start: 07/09/25 14:54 Freq: Status: Active Protocol: Document 07/10/25 08:52 SM (Rec: 07/10/25 08:53 SM [id number]) Discharge Planning Assessment Assigned Discharge Karlene Wilson RN CM Co Supervisor [employer] Provider BUNCHER OPERATOR: Heena Jaeger Insurance [facility] Advance Directives? Yes Advance Directives No on File History Provided By Patient Prior Living House Arrangements Household Members spouse Type of Drives own vehicle transporation used prior to admit Independent with ADL Yes 's Is patient alert and Yes oriented? Caregiver for No Another DME Already Rented / Cane Owned Barriers to No Discharge Referrals Initiated None needed Review Status In Process Please Provide Date 07/10/25 Initial DC Assessment Was Performed Next Review Type Continued Stay Review
--- NOTE | 2025-07-10 12:32 | PM.DS.1 ---
History of Present Illness History of Present Illness Chief complaint: Sent from [facility], Light headed , high ,low BP Narrative: The patient was a 75-year-old female with a history of hypertension, asthma, and dyslipidemia. She presented to the ED with chest tightness and feeling lightheaded. Upon her arrival her pain had resolved. She denies history of syncopal episodes. In the ED she was found to be in atrial fibrillation with paroxysmal activity. She was given 1 dose of oral metoprolol for rate control. She was no known history of atrial fibrillation and a D-dimer was checked due to recent travel. A time-out was negative. CT angiogram was not obtained. She was admitted for rate control and echo. She denies any residual chest pain or known history of CAD. Discharge Providers Provider Date of admission: 07/09/25 13:50 Discharge Date: 07/10/25 Primary care physician: JOSEPH Ma- Consults: None Discharge provider: Jj Pike MD Summary Hospital Course Discharge Diagnosis: 1. Paroxysmal atrial fibrillation with Christiano Vasc score of 3, improved. 2. Hypertension, active. 3. Hypertension, stable. 4. Asthma, stable. 5. Hyperlipidemia, stable. Hospital Course: She was admitted with symptoms likely related to her paroxysmal AFib with RVR. She was started on metoprolol b.i.d. and essentially back to normal sinus rhythm. Her chads Vasc score was 3 and she was agreeable to apixaban. Echo was obtained which was unremarkable. Her information will be communicated to Dr. Hernandez at [facility], she was hoping to follow up with him and her also sees him. Status at Discharge Cognitive/behavioral status at discharge: oriented Functional status at discharge: independent ambulation Overall status at discharge: patient is back to baseline Time Spent with Patient Time spent: Greater than 30 minutes Exam Vital Signs (past 8 hours): - 07/10/25 05:06 07/10/25 06:00 07/10/25 08:40 Temperature 98.3 F 98.3 F Pulse Rate 68 68 78 Respiratory Rate 18 18 18 Blood Pressure 195/102 H 190/99 H 179/84 H Pulse Oximetry 96 96 99 Oxygen Delivery Method Oxygen Flow Rate 07/10/25 08:45 07/10/25 09:18 07/10/25 11:08 Temperature 96.9 F L 97.9 F Pulse Rate 54 L Respiratory Rate 18 Blood Pressure 165/90 H Pulse Oximetry 97 Oxygen Delivery Method Room Air Oxygen Flow Rate 0 07/10/25 11:12 Temperature Pulse Rate Respiratory Rate Blood Pressure 156/88 H Pulse Oximetry Oxygen Delivery Method Oxygen Flow Rate Oxygen Delivery Method Room Air Oxygen Flow Rate 0 Narrative Exam Narrative: NAD, alert and oriented. Fluent speech. Lungs are clear, normal rate and effort. Heart is regular, no murmur gallop or rub. Abdomen is soft, non distended. Extremities are free of edema. Objective ECG Impression: Impression: Intervals [place] Rate: 68 P: 51 DE: 150 QRS: 24 QRSD: 124 T: 11 QT: 410 QTc: 435 Interpretive Statements Normal sinus rhythm Right bundle branch block (old) Imaging Chest x-ray: Radiologist's impression: Chest x-ray: Radiologist's impression: New mild peribronchial thickening and subsegmental atelectasis as discussed above. Labs 07/09/25 09:55 07/09/25 09:55 PFS Medical History Bilateral primary osteoarthritis of knee Right anterior shoulder pain Arthralgia of both knees Ankle joint pain Abdominal hernia Hyperlipidemia Congenital abnormality of kidney Gastroesophageal reflux disease Hypertension UTI (urinary tract infection), uncomplicated (03/09/03) Tear of medial meniscus of knee, current (02/22/05) Pap smear for cervical cancer screening (03/15/04) Neck pain (09/29/02) Closed trimalleolar fracture of right ankle with delayed healing (08/09/16) Family history of malignant neoplasm of colon in mother (09/02/15) Asthma, mild intermittent, well-controlled (02/22/16) Allergic rhinitis Essential hypertension Mixed hyperlipidemia (01/06/03) Surgical History Status post hernia repair Family History Father Age: 98 Dementia Hypertension Mother Colon cancer Social History household members: spouse Smoking Status: Never smoker alcohol intake: current substance use type: does not use Discharge Assessment & Plan Assessment and Plan Assessment: 1. Paroxysmal atrial fibrillation with Christiano Vasc score of 3, improved. 2. Hypertension, active. 3. Hypertension, stable. 4. Asthma, stable. 5. Hyperlipidemia, stable. Plan of Treatment: Discharge on apixaban b.i.d. as well as metoprolol 25 XL daily. She will try to follow up with Cardiology as noted above. Discharge Plan Discharge Plan Patient Disposition: Home Provider Discharge Comment: Stable for discharge. Discharge orders & Medications Prescriptions: New metoprolol succinate 25 mg capsule,sprinkle,ER 24hr 25 mg PO DAILY Qty: 30 2RF apixaban 5 mg tablet 5 mg PO BID Qty: 60 1RF Continued albuterol-budesonide 90-80 mcg/actuation HFA aerosol inhaler 2 inh inhalation ONCE Qty: 10.7 2RF Rx Instructions: as a single dose; may repeat up to 6 doses per day (12 inhalations) rosuvastatin 10 mg tablet 10 mg PO DAILY Qty: 90 1RF estradiol 0.01 % (0.1 mg/gram) cream 1 g vaginal 3XW Qty: 42.5 3RF Airsupra 90-80 mcg/actuation HFA aerosol inhaler 2 inh inhalation ONCE Rx Instructions: as a single dose; may repeat up to 6 doses per day (12 inhalations) losartan 50 mg tablet 100 mg PO DAILY Qty: 180 3RF Rx Instructions: Take 2 tabs daily unless symptomatic of low BP , then take 1. propranolol 10 mg tablet 10 mg PO ONCE PRN (Reason: anxiety) Qty: 30 0RF Rx Instructions: Take 1 tablet as needed for anxiety cyclobenzaprine 10 mg tablet 10 mg PO BID PRN (Reason: muscle spasm) fluticasone propion-salmeterol 250-50 mcg/dose blister with device 1 inh inhalation BID Qty: 60 11RF Rx Instructions: rinse mouth with water, gargle and spit after each use Follow up/Referrals: Heena Jaeger FNP-BC [Primary Care Provider, Family Practice] Discharge Health Status Multidrug resistant organism: No MDRO Diet/Activity/Treatments Diet: Regular Visit Report/Discharge Packet Instructions: DI for Atrial Fibrillation Stand Alone Forms: Patient Portal/API Discharge Data Primary Care Provider: Heena Jaeger Attending Provider: Jj Pike Admit Date/Time: 07/09/25 13:50
--- NOTE | 2025-07-10 13:19 | PC.NURSE ---
1230 DR VALERIO AT BEDSIDE. ECHO COMPLETED. PLAN TO DISCHARGE PER MD. AWARE OF PT BP READINGS. 1252 DISCHARGE DISCUSSED. SIG PAGE SIGNED AND PLACED IN CHART. IV REMOVED. ALL QUESTIONS ANSWERED. WHEELED OUT AT 1302 BY SHAUN KRAUSE.
== END 2025-07-10 13:02 | disposition home or self-care (01) ==
LOC: ED 13:46 → AC 13:51 → ICU 14:19
PROVIDERS: Admitting Provider Hospitalist; Emergency Provider Emergency Medicine; Family Provider Nurse Practitioner; PCP Nurse Practitioner Family; Referring Provider Emergency Medicine; Visit Provider Hospitalist
DX: I48.0 Paroxysmal atrial fibrillation (principal); R07.89 Other chest pain; I10 Essential (primary) hypertension; J45.909 Unspecified asthma, uncomplicated; E78.5 Hyperlipidemia, unspecified; I45.10 Unspecified right bundle-branch block
CPT/HCPCS: 36415; 71045; 80053; 81003; 82550; 83690; 83735; 83880; 84484; 85025; 85379; 85610; 85730; 93005; 93306; 96361; 96374; 99284; G0378; J7030

== ENCOUNTER → 2025-07-16 14:58 | Outpatient (CLI) | payer MEDICARE, SELFPAY ==
[2025-07-09 14:54] VITALS: BMI 31.8
[2025-07-16 16:01] LABS: Microalbumi Creatinin Ratio Ur 24.0 ug/mg CR (<30)
[2025-07-16 16:07] LABS: Hemoglobin A1C% w Est Avg Glu 5.6 % (4.0-6.0)
[2025-07-16 16:15] LABS: Add Manual Diff / Slide Review NO; Hematocrit 41.8 % (36-46); Hemoglobin 14.1 g/dL (12.0-16.0); Lymphocytes Absolute Auto 1500 /uL (1100-4500); Mean Corpuscular HGB Conc 33.7 % (30-36); Mean Corpuscular Hemoglobin 31.7 PG (26-34); Mean Corpuscular Volume 94.0 fL (80-100); Platelet Count 258 X10^3/uL (150-400)
[2025-07-16 16:38] LABS: Alanine Aminotransferase 18 IU/L (<35); Albumin 4.0 g/dL (3.5-5.0); Albumin Globulin Ratio 1.4 (1.0-2.8); Alkaline Phosphatase 87 U/L (38-126); Blood Urea Nitrogen 19 mg/dL (7-17); Calcium 9.7 mg/dL (8.4-10.2); Carbon Dioxide 28 mmol/L (22-32); Chloride 105 mmol/L (98-107); Cholesterol 146 mg/dL (140-199); Estimated Glomerular Filt Rate > 60 mL/min (>60); Globulin 2.9 g/dL (1.7-4.1); Glucose 96 mg/dL (70-99); HDL Cholesterol 72 mg/dL (40-60); HEMOLYSIS < 15 (0-50); Potassium 4.4 mmol/L (3.4-5.1); Sodium 141 mmol/L (137-145); Total Protein 6.9 g/dL (6.3-8.2); Triglycerides 140 mg/dL (35-150)
[2025-07-16 16:50] LABS: Vitamin D 25 Hydroxy (D3) 25.6 ng/mL (30.0-100.0)
[2025-07-16 17:21] LABS: TSH w/ Reflex to FT4 1.42 uIU/mL (0.47-4.68)
== END ==
PROVIDERS: Family Provider Nurse Practitioner; PCP Nurse Practitioner Family; Referring Provider Nurse Practitioner Family; Visit Provider Nurse Practitioner Family
DX: E78.5 Hyperlipidemia, unspecified (principal); I10 Essential (primary) hypertension; I48.91 Unspecified atrial fibrillation; Q63.9 Congenital malformation of kidney, unspecified
CPT/HCPCS: 36415; 80053; 80061; 82043; 82306; 82570; 83036; 84443; 85025